=== PATIENT | male | born 1970 | race Caucasian/White ===

== ENCOUNTER → 2016-05-20 | Outpatient (CLI) | payer OTHER ==
[~2016-05-20] MED LIST: *BLDWK7; /MOXI40TA; ALLOPUR100 PO; ALLOPUR300 PO; CATAFLAM PO; CEFT500T; CLOTPOW; COLC0.6T; COLCHI0.6 PO; DARVOCET-N PO; IBUP600T; INDO50CA2; INDOCIN PO; VICO5TAB; ZOCOR20 PO
[2016-05-20 13:33] LABS: BASO # 0.1 K/mm3 (0.0-0.2); BASO % 0.9 % (0.0-1.0); EOS # 0.1 K/mm3 (0.0-0.50); EOS % 1.9 % (0.0-3.0); LYMPH # 1.2 K/mm3 (1.5-4.5); LYMPH % 18.3 % (24.0-44.0); MEAN CORPUSCULAR HEMOGLOBIN 28.6 pg (27.0-33.0); MEAN CORPUSCULAR HGB CONC 34.1 g/dl (32.0-36.5); MEAN CORPUSCULAR VOLUME 83.9 fl (80.0-96.0); MONO # 0.5 K/mm3 (0.0-0.8); MONO % 7.4 % (0.0-5.0); NEUTROPHILS # 4.4 K/mm3 (1.8-7.7); NEUTROPHILS % 68.3 % (36.0-66.0); RED CELL DISTRIBUTION WIDTH 12.6 % (11.5-14.5); WHITE BLOOD COUNT 6.5 K/mm3 (4.0-10.0)
[2016-05-20 14:14] LABS: ALBUMIN 4.2 GM/DL (3.2-5.2); ALBUMIN/GLOBULIN RATIO 1.56 (1.00-1.93); ALKALINE PHOSPHATASE 79 U/L (45-117); ALT/SGPT 50 U/L (12-78); ANION GAP 10 MEQ/L (8-16); AST/SGOT 20 U/L (15-37); BILIRUBIN,TOTAL 0.6 MG/DL (0.2-1.0); BLOOD UREA NITROGEN 14 MG/DL (7-18); CARBON DIOXIDE LEVEL 28 MEQ/L (21-32); CHLORIDE LEVEL 107 MEQ/L (98-107); CHOLESTEROL LEVEL 168 MG/DL (<200); CREATININE FOR GFR 1.13 MG/DL (0.70-1.30); FREE T4 0.92 NG/DL (0.76-1.46); GLOMERULAR FILTRATION RATE > 60.0 (>60); GLUCOSE, FASTING 87 MG/DL (70-105); POTASSIUM SERUM 4.9 MEQ/L (3.5-5.1); SODIUM LEVEL 145 MEQ/L (136-145); TOTAL PROTEIN 6.9 GM/DL (6.4-8.2); TRIGLYCERIDES LEVEL 109 MG/DL (<150)
== END ==
LOC: M WUC 11:41
PROVIDERS: ATTEND Family Medicine
DX: Z00.00 Encounter for general adult medical examination without abnormal findings (principal)

== ENCOUNTER 2016-05-22 10:41 | Emergency (ER) | payer OTHER ==
[2016-05-22 11:19] LABS: BASO # 0.1 K/mm3 (0.0-0.2); BASO % 1.6 % (0.0-1.0); EOS # 0.2 K/mm3 (0.0-0.50); EOS % 2.6 % (0.0-3.0); LARGE UNSTAINED CELL # 0.2 K/mm3 (0.0-0.4); LYMPH # 1.6 K/mm3 (1.5-4.5); MEAN CORPUSCULAR HEMOGLOBIN 29.2 pg (27.0-33.0); MEAN CORPUSCULAR HGB CONC 34.4 g/dl (32.0-36.5); MEAN CORPUSCULAR VOLUME 84.9 fl (80.0-96.0); MONO # 0.4 K/mm3 (0.0-0.8); MONO % 6.8 % (0.0-5.0); NEUTROPHILS % 62.9 % (36.0-66.0); PLATELET COUNT, AUTOMATED 188 k/mm3 (150-450); RED CELL DISTRIBUTION WIDTH 13.8 % (11.5-14.5); WHITE BLOOD COUNT 6.4 K/mm3 (4.0-10.0)
[2016-05-22] MEDS ORDERED: ASPIRIN 81 MG CHEW TABLET As Ordered ONE (11:26)
[2016-05-22 11:39] LABS: ANION GAP 5 MEQ/L (8-16); BLOOD UREA NITROGEN 16 MG/DL (7-18); CALCIUM LEVEL 8.6 MG/DL (8.5-10.1); CARBON DIOXIDE LEVEL 31 MEQ/L (21-32); CHLORIDE LEVEL 107 MEQ/L (98-107); CREATININE FOR GFR 0.97 MG/DL (0.70-1.30); GLOMERULAR FILTRATION RATE > 60.0 (>60); GLUCOSE, FASTING 99 MG/DL (70-105); POTASSIUM SERUM 4.5 MEQ/L (3.5-5.1); SODIUM LEVEL 143 MEQ/L (136-145)
--- NOTE | 2016-05-22 12:15 | REP ---
Chest two views HISTORY: Chest pain Comparison: 04/02/2003 The lungs are clear. The heart is normal in size. The pulmonary vasculature is normal in appearance. The bony structure is intact. IMPRESSION: No acute disease. Signed by Gabino Rivera MD 05/22/2016 12:06 P
--- NOTE | 2016-05-22 18:35 | EDDOCDS ---
Physician Documentation [facility] Name: Akin Zavala Age: 45 yrs Sex: Male : 1970 Arrival Date: 05/22/2016 Time: 10:41 Bed 15 Private MD: Ramakrishna Reich Disposition: 05/22/16 18:15 Discharged to Home/Self Care. Impression: Chest pain, unspecified. - Condition is Stable. - Discharge Instructions: Nonspecific Chest Pain. - Medication Reconciliation, Local Pharmacy Hours form. - Follow up: Ramakrishna Reich; When: 2 - 3 days; Reason: Recheck today's complaints. - Problem is new. - Symptoms are resolved. - Notes: You were seen in the ED for chest pain. Bloodwork along with EKG of the heart, chest Xray and cardiac monitoring showed no acute findings at this time. As you are feeling better you may return home to follow up at your primary doctor appointment in 3 days - discuss with your doctor the chest pain and any need for further testing such as stress testing. Call your underwriting director at [facility] to discuss this as well. Return to the ED for any return of chest pain, trouble breathing, lightheadedness, loss of consciousness or any other concerns. Historical: - Allergies: no known allergies; - Home Meds: 1. metoprolol succinate 25 mg Tb24 1 tab once daily 2. ramipril 2.5 mg Oral cap 1 cap once daily 3. atorvastatin 50 mg oral tab 1 tab once daily 4. Uloric 40 mg oral tab 1 tab once daily 5. Plavix 75 mg Oral tab 1 tab once daily 6. tizanidine 2 mg oral tab 2 tabs every 6 hours - PMHx: Gout; [place]; Hypercholesterolemia; Hypertension; - PSHx: Cardiac stents (2014); - Social history: Smoking status: Patient states former smoker of tobacco. No barriers to communication noted, The patient speaks fluent Upper Sorbian. - : Unable to assess if pt is on anticoagulants. Home medication list is obtained from the patient. - Exposure Risk Screening:: None identified. Vital Signs: 05/22 10:42 BP 153 / 82; Pulse 54; Resp 18; Temp 96.0; Pulse Ox 100% ; Weight 108.86 kg / 240 lbs; elp Height 5 ft. 10 in. (177.80 cm); Pain 3/10; 11:30 BP 137 / 82; Pulse 53; Pain 4/10; jjr 11:35 BP 129 / 68; Pulse 62; Pain 4/10; jjr 11:40 BP 110 / 61; Pulse 63; jjr 11:46 BP 100 / 56 (auto/); jjr 11:46 Pulse 58 MON; Pulse Ox 95% ; jjr 12:01 BP 100 / 64 (auto/); jjr 12:02 Pulse 52 MON; Pulse Ox 99% ; jjr 12:16 BP 96 / 62 (auto/); jjr 12:16 Pulse 52 MON; Pulse Ox 97% ; jjr 12:31 BP 99 / 62 (auto/); jjr 12:31 Pulse 52 MON; Resp 18; Pulse Ox 98% on R/A; jjr 12:46 BP 101 / 62 (auto/); jjr 12:46 Pulse 50 MON; Pulse Ox 99% ; jjr 13:48 BP 117 / 65 (auto/); jjr 13:48 Pulse 54 MON; jjr 14:46 BP 124 / 74 (auto/); jjr 14:46 Pulse 60 MON; jjr 15:14 BP 123 / 60 (auto/); jjr 15:15 Pulse 62 MON; jjr 16:14 BP 121 / 74 (auto/); jjr 16:14 Pulse 58 MON; Resp 18; jjr 17:14 BP 127 / 82 (auto/); jjr 17:14 Pulse 54 MON; Resp 18; jjr 18:33 BP 135 / 78; Pulse 52; Resp 18; Temp 97.2(O); Pulse Ox 98% on R/A; Pain 1/10; jjr 10:42 Body Mass Index 34.44 (108.86 kg, 177.80 cm) elp MDM: 10:52 Networks Computer Consultant/Pulse Ox/q 30 min VS ordered. br1 10:52 IV Saline Lock ordered. br1 10:52 Rhythm Strip to chart ordered. br1 10:52 Undress patient appropriately for examination ordered. br1 10:53 Basic Metabolic Profile Ordered. EDMS 10:53 CBC with Diff Ordered. EDMS 10:53 Cardiac Injury Profile Ordered. EDMS 10:53 Troponin Ordered. EDMS 10:53 ECG WITH READING ER PHYS+CARDIAG ordered. EDMS 10:53 Chest, 2 View (pa\E\lat) Ordered. EDMS 11:22 Aspirin 324 mg PO once ordered. br1 11:23 D-Dimer Quant Ordered. EDMS 11:25 Nitrostat 0.4 mg Sublingual every 5 minutes; hold if SBP<90mmHg.Document Pain Score br1 Response to Each Dose x3 ordered. 12:39 LOW FAT LOW CHOLESTEROL+DIET ordered. EDMS 13:10 Financial registration complete. lg 13:32 [facility] Payment Agreement was scanned into [employer] and attached to record. lg 14:48 Basic Metabolic Profile Reviewed. br1 14:48 CBC with Diff Reviewed. br1 14:48 Cardiac Injury Profile Reviewed. br1 14:48 Troponin Reviewed. br1 14:48 D-Dimer Quant Reviewed. br1 14:48 Chest, 2 View (pa\E\lat) Reviewed. br1 14:49 Repeat EKG (put time details section) ordered. br1 14:49 Redraw CIP &Troponin (put time in details section) ordered. br1 15:00 Repeat EKG (put time details section) complete. lbd 15:00 Redraw CIP &Troponin (put time in details section) complete. lbd 15:04 ECG WITH READING ER PHYS ordered. EDMS 15:04 CARDIAC MARKER PANEL Ordered. EDMS 17:03 CARDIAC MARKER PANEL Reviewed. br1 Administered Medications: 11:29 Drug: Aspirin 324 mg [aspirin 81 mg chewable tablet (4 tabs)] Route: PO; bcj 11:30 Drug: Nitrostat 0.4 mg [Nitrostat 0.4 mg sublingual tablet (1 tabs)] Route: Sublingual; jjr 11:35 Drug: Nitrostat 0.4 mg [Nitrostat 0.4 mg sublingual tablet (1 tabs)] Route: Sublingual; jjr Signatures: Dispatcher [employer] EDMS Lucía Lehman, Monitor Technician Unit lbd Edmundo Rod RN Monie Cortez, Reg Reg lg Florentino Hewitt RN RN dy Roggie, Brian, MD MD br1 Doreen Holguin RN RN jjRoberto Caruso RN bcj The chart was reviewed and I authenticate all verbal orders and agree with the evaluation and treatment provided.Corrections: (The following items were deleted from the chart) 11:31 10:49 Home Meds: Takes 5 meds, unknown, will contact [facility] for med list; aracelis matt Attachments: 13:32 [facility] Payment Agreement lg MTDD
--- NOTE | 2016-05-22 18:35 | EDDOCDS ---
Nurse's Notes [facility] Name: Akin Zavala Age: 45 yrs Sex: Male : 1970 Arrival Date: 05/22/2016 Time: 10:41 Bed 15 Private MD: Ramakrishna Reich Diagnosis: Chest pain, unspecified Presentation: 05/22 10:44 Presenting complaint: Patient states: Chest pain since heavy lifting yesterday at 11am, dwg pain is constant. Takes ASA 325mg daily last dose yesterday. Adult Sepsis Screening: The patient does not have new or worsening altered mentation. Patient's respiratory rate is less than 22. Systolic blood pressure is greater than 100. Patient has a qSOFA score of 0- Negative Sepsis Screen. Suicide/Homicide risk assessment- the patient denies having any suicidal and/or homicidal ideations and does not present with any other emotional, behavioral or mental health complaints. Status: Patient is not a household appliances service technician or dependent. Transition of care: patient was not received from another setting of care. 10:44 Method Of Arrival: Walkin/Carried/Asstd dwg 10:51 Acuity level changed due to complexity of care. dwg 10:51 Acuity: JEANETTE Level 2 dwg Triage Assessment: 10:49 General: Appears in no apparent distress. Pain: Pain currently is 3 out of 10 on a pain dwg scale. HIV screening NA for this visit Offered previously. Historical: - Allergies: no known allergies; - Home Meds: 1. metoprolol succinate 25 mg Tb24 1 tab once daily 2. ramipril 2.5 mg Oral cap 1 cap once daily 3. atorvastatin 50 mg oral tab 1 tab once daily 4. Uloric 40 mg oral tab 1 tab once daily 5. Plavix 75 mg Oral tab 1 tab once daily 6. tizanidine 2 mg oral tab 2 tabs every 6 hours - PMHx: Gout; [place]; Hypercholesterolemia; Hypertension; - PSHx: Cardiac stents (2014); - Social history: Smoking status: Patient states former smoker of tobacco. No barriers to communication noted, The patient speaks fluent Moldovan. - : Unable to assess if pt is on anticoagulants. Home medication list is obtained from the patient. - Exposure Risk Screening:: None identified. Screenin:45 Screening information is obtained from the patient. Fall risk: No risks identified. jjr Assistance ADL's: requires no assistance with activities of daily living. Abuse/DV Screen: The patient / caregiver reports he/she is: not in a situation that causes fear, pain or injury. Nutritional screening: No deficits noted. Advance Directives: There is no active DNR order. home support is adequate. Assessment: 11:44 General: Appears in no apparent distress, well nourished, well groomed, Behavior is jjr appropriate for age. Neurological: No deficits noted. Cardiovascular: Rhythm is sinus rhythm Chest pain is described as vague, quality is dull ache is located in substernal area radiates Does not radiate. episodes are continuous began yesterday. Respiratory: No deficits noted. Derm: No deficits noted. 12:35 General: Appears in no apparent distress, continues to report vague [place] jjr substernal chest ache 2/10. Neurological: No deficits noted. Cardiovascular: Rhythm is sinus bradycardia. Respiratory: No deficits noted. Derm: No deficits noted. 13:46 General: Appears in no apparent distress. Cardiovascular: Rhythm is sinus rhythm Chest jjr pain is described as Pain is 1 out of 10 on a pain scale. quality is dull ache is located in substernal area episodes are continuous. 15:15 General: Appears in no apparent distress, no change in vague c/o substernal chest pain. jjr Cardiovascular: Rhythm is sinus rhythm. Respiratory: No deficits noted. Derm: No deficits noted. 16:26 General: Appears in no apparent distress, Behavior is appropriate for age. jjr Cardiovascular: Rhythm is sinus bradycardia Chest pain is described as Pain is 1 out of 10 on a pain scale. is located in substernal area episodes are continuous. Respiratory: No deficits noted. Derm: No deficits noted. 17:27 General: Appears in no apparent distress, Behavior is appropriate for age. jjr Cardiovascular: Rhythm is sinus bradycardia Chest pain is described as vague, quality is ache is located in substernal area. 18:34 General: Appears in no apparent distress. Cardiovascular: Rhythm is sinus bradycardia jjr Chest pain is described as Pain is 1 out of 10 on a pain scale. is located in substernal area. Vital Signs: 10:42 BP 153 / 82; Pulse 54; Resp 18; Temp 96.0; Pulse Ox 100% ; Weight 108.86 kg; Height 5 elp ft. 10 in. (177.80 cm); Pain 3/10; 11:30 BP 137 / 82; Pulse 53; Pain 4/10; jjr 11:35 BP 129 / 68; Pulse 62; Pain 4/10; jjr 11:40 BP 110 / 61; Pulse 63; jjr 11:46 BP 100 / 56 (auto/); jjr 11:46 Pulse 58 MON; Pulse Ox 95% ; jjr 12:01 BP 100 / 64 (auto/); jjr 12:02 Pulse 52 MON; Pulse Ox 99% ; jjr 12:16 BP 96 / 62 (auto/); jjr 12:16 Pulse 52 MON; Pulse Ox 97% ; jjr 12:31 BP 99 / 62 (auto/); jjr 12:31 Pulse 52 MON; Resp 18; Pulse Ox 98% on R/A; jjr 12:46 BP 101 / 62 (auto/); jjr 12:46 Pulse 50 MON; Pulse Ox 99% ; jjr 13:48 BP 117 / 65 (auto/); jjr 13:48 Pulse 54 MON; jjr 14:46 BP 124 / 74 (auto/); jjr 14:46 Pulse 60 MON; jjr 15:14 BP 123 / 60 (auto/); jjr 15:15 Pulse 62 MON; jjr 16:14 BP 121 / 74 (auto/); jjr 16:14 Pulse 58 MON; Resp 18; jjr 17:14 BP 127 / 82 (auto/); jjr 17:14 Pulse 54 MON; Resp 18; jjr 18:33 BP 135 / 78; Pulse 52; Resp 18; Temp 97.2(O); Pulse Ox 98% on R/A; Pain 1/10; jjr 10:42 Body Mass Index 34.44 (108.86 kg, 177.80 cm) elp Vitals: 10:42 Log In Time: May 22, 2016 at 10:41. RN notified that patient meets Red Flag elp criteria. ED Course: 10:42 Patient visited by Mary Antonio PCA. elp 10:42 Ramakrishna Reich is Private Physician. elp 10:42 Patient visited by Mary Antonio PCA. elp 10:42 Patient moved to Waiting elp 10:46 Triage Initiated dwg 10:52 Doreen Holguin RN is Primary Nurse. dwg 10:52 Patient moved to 15 dwg 11:00 EKG done. (by ED staff). Reviewed by Kaleb Whelan MD. jrd 11:09 Patient visited by Saúl Kaur PCA. jrd 11:12 Inserted saline lock: 20 gauge in right antecubital area and blood collected. The dy patient tolerated the procedure well. Labs drawn. (by ED staff). Sent per order to lab. 11:15 Kaleb Whelan MD is Attending Physician. br1 11:21 Patient visited by Kaleb Whelan MD. br1 11:45 Patient visited by Doreen Holguin RN. jjr 11:45 The patient / caregiver is instructed regarding the plan of care and ED course. Cardiac jjr monitor on. Pulse ox on. NIBP on. 12:36 Patient visited by Doreen Holguin RN. jjr 12:54 Chest, 2 View (pa\E\lat) Returned. EDMS 13:32 [facility] Payment Agreement was scanned into [employer] and attached to record. lg 13:47 Patient visited by Doreen Holguin RN. jjr 14:54 Patient visited by Kaleb Whelan MD. br1 15:16 Patient visited by Doreen Holguin RN. jjr 16:25 CARDIAC MARKER PANEL Sent. jjr 16:26 Patient visited by Doreen Holguin RN. jjr 16:58 EKG done. (by ED staff). Reviewed by Kaleb Whelan MD. jjr 17:28 Patient visited by Doreen Holguin RN. jjr 18:10 Patient visited by Kaleb Whelan MD. br1 18:15 Ramakrishna Reich is Referral Physician. br1 18:33 Discontinued lock intact, bleeding controlled, pressure dressing applied, No jjr redness/swelling at site. No procedures done that require assistance. Administered Medications: 11:29 Drug: Aspirin 324 mg [aspirin 81 mg chewable tablet (4 tabs)] Route: PO; bcj 11:30 Drug: Nitrostat 0.4 mg [Nitrostat 0.4 mg sublingual tablet (1 tabs)] Route: Sublingual; jjr 11:35 Drug: Nitrostat 0.4 mg [Nitrostat 0.4 mg sublingual tablet (1 tabs)] Route: Sublingual; jjr Order Results: Lab Order: Basic Metabolic Profile; SPEC'M 05/22/16 11:10 Test: GLUCOSE, FASTING; Value: 99; Range: 70-105; Units: MG/DL; Status: F Test: BLOOD UREA NITROGEN; Value: 16; Range: 7-18; Units: MG/DL; Status: F Test: CREATININE FOR GFR; Value: 0.97; Range: 0.70-1.30; Units: MG/DL; Status: F Test: GLOMERULAR FILTRATION RATE; Value: > 60.0; Range: >60; Status: F Test: SODIUM LEVEL; Value: 143; Range: 136-145; Units: MEQ/L; Status: F Test: POTASSIUM SERUM; Value: 4.5; Range: 3.5-5.1; Units: MEQ/L; Status: F Test: CHLORIDE LEVEL; Value: 107; Range: 98-107; Units: MEQ/L; Status: F Test: CARBON DIOXIDE LEVEL; Value: 31; Range: 21-32; Units: MEQ/L; Status: F Test: ANION GAP; Value: 5; Range: 8-16; Abnormal: Below low normal; Units: MEQ/L; Status: F Test: CALCIUM LEVEL; Value: 8.6; Range: 8.5-10.1; Units: MG/DL; Status: F Test Note: ; Units are mL/min/1.73 m2 Chronic Kidney Disease Staging per NKF: Stage I & II GFR >=60 Normal to Mildly Decreased Stage III GFR 30-59 Moderately Decreased Stage IV GFR 15-29 Severely Decreased Stage V GFR <15 Very Little GFR Left ESRD GFR <15 on MAGAZINE FEEDER Lab Order: CBC with Diff; SPEC'M 05/22/16 11:10 Test: WHITE BLOOD COUNT; Value: 6.4; Range: 4.0-10.0; Units: K/mm3; Status: F Test: RED BLOOD COUNT; Value: 5.42; Range: 4.30-6.10; Units: M/mm3; Status: F Test: HEMOGLOBIN; Value: 15.8; Range: 14.0-18.0; Units: g/dl; Status: F Test: HEMATOCRIT; Value: 46.0; Range: 42.0-52.0; Units: %; Status: F Test: MEAN CORPUSCULAR VOLUME; Value: 84.9; Range: 80.0-96.0; Units: fl; Status: F Test: MEAN CORPUSCULAR HEMOGLOBIN; Value: 29.2; Range: 27.0-33.0; Units: pg; Status: F Test: MEAN CORPUSCULAR HGB CONC; Value: 34.4; Range: 32.0-36.5; Units: g/dl; Status: F Test: RED CELL DISTRIBUTION WIDTH; Value: 13.8; Range: 11.5-14.5; Units: %; Status: F Test: PLATELET COUNT, AUTOMATED; Value: 188; Range: 150-450; Units: k/mm3; Status: F Test: NEUTROPHILS %; Value: 62.9; Range: 36.0-66.0; Units: %; Status: F Test: LYMPH %; Value: 23.0; Range: 24.0-44.0; Abnormal: Below low normal; Units: %; Status: F Test: MONO %; Value: 6.8; Range: 0.0-5.0; Abnormal: Above high normal; Units: %; Status: F Test: EOS %; Value: 2.6; Range: 0.0-3.0; Units: %; Status: F Test: BASO %; Value: 1.6; Range: 0.0-1.0; Abnormal: Above high normal; Units: %; Status: F Test: LARGE UNSTAINED CELL %; Value: 3.0; Range: 0.0-4.0; Units: %; Status: F Test: NEUTROPHILS #; Value: 4.0; Range: 1.8-7.7; Units: K/mm3; Status: F Test: LYMPH #; Value: 1.6; Range: 1.5-4.5; Units: K/mm3; Status: F Test: MONO #; Value: 0.4; Range: 0.0-0.8; Units: K/mm3; Status: F Test: EOS #; Value: 0.2; Range: 0.0-0.50; Units: K/mm3; Status: F Test: BASO #; Value: 0.1; Range: 0.0-0.2; Units: K/mm3; Status: F Test: LARGE UNSTAINED CELL #; Value: 0.2; Range: 0.0-0.4; Units: K/mm3; Status: F Lab Order: Cardiac Injury Profile; [facility] 05/22/16 11:10 Test: CPK CREATINE PHOSPHOKINASE; Value: 150; Range: 39-308; Units: U/L; Status: F Test: CK-MB VALUE MASS; Value: 1.5; Range: 0.0-3.6; Units: NG/ML; Status: F Test: MB/CK RELATIVE INDEX; Value: 1.00; Range: < OR =4; Status: F Test Note: ; DIAGNOSIS CRITERIA MMB ng/ml Relative Index (RI) NON-AMI < or = 5 N/A FIGUEROA ZONE > 5 < or = 4 AMI > 5 > 4 Lab Order: Troponin; [facility] 05/22/16 11:10 Test: TROPONIN I; Value: < 0.02; Range: < 0.10; Units: NG/ML; Status: F Test Note: ; Troponin I Reference Interval for Zyncd LOCI: 99th Percentile= 0.00-0.045 ng/ml Risk Stratification: <= 0.10 ng/ml Decreased Risk for Adverse Clinical Events. 0.10-1.50 ng/ml Increased Risk for Adverse Clinical Events. Evaluation of additional criterion and/or repeat testing in 2-6 hours is suggested to rule out myocardial damage. >= 1.50 ng/ml Indicative of Myocardial Injury. Lab Order: D-Dimer Quant; [facility] 05/22/16 11:10 Test: D-DIMER QUANT; Value: < 270.0; Range: <500; Units: ng/ml; Status: F Lab Order: CARDIAC MARKER PANEL; [facility] 05/22/16 16:23 Test: CPK CREATINE PHOSPHOKINASE; Value: 119; Range: 39-308; Units: U/L; Status: F Test: CK-MB VALUE MASS; Value: 1.4; Range: 0.0-3.6; Units: NG/ML; Status: F Test: MB/CK RELATIVE INDEX; Value: 1.17; Range: < OR =4; Status: F Test: TROPONIN I; Value: < 0.02; Range: < 0.10; Units: NG/ML; Status: F Test Note: ; DIAGNOSIS CRITERIA MMB ng/ml Relative Index (RI) NON-AMI < or = 5 N/A FIGUEROA ZONE > 5 < or = 4 AMI > 5 > 4 Radiology Order: Chest, 2 View (pa\E\lat) Test: Chest, 2 View (pa\E\lat) REASON FOR EXAMINATION: Chest Pain; Chest two views; ; HISTORY: Chest pain; ; Comparison: 04/02/2003; ; The lungs are clear. The heart is normal in size. The pulmonary vasculature is; normal in appearance. The bony structure is intact.; ; IMPRESSION: No acute disease.; ; ; Signed by; Gabino Rivera MD 05/22/2016 12:06 P; Outcome: 18:15 Discharge ordered by Provider. br1 18:34 Discharge Assessment: patient administered narcotics - no. The following High Risk jjr Discharge criteria are identified: None. Discharged to home ambulatory, with significant other. Condition: stable. Discharge instructions given to patient, Instructed on discharge instructions, follow up and referral plans. Demonstrated understanding of instructions. No special radiology studies were completed. Property sent home with patient. 18:34 Patient left the ED. jjr Signatures: Dispatcher [employer] EDMS Edmundo Rod RN Roberto Hoyos RN RN Monie Latham, Florentino Casillas lg, RN Kaleb Retana MD MD br1 Doreen Holguin, RN Mary Camejo, PAINT ROLLER ASSEMBLER PAINT ROLLER ASSEMBLER elp Saúl Kaur, PAINT ROLLER ASSEMBLER PAINT ROLLER ASSEMBLER jrd Corrections: (The following items were deleted from the chart) 10:52 10:44 Acuity: JEANETTE Level 3 [facility] 11:31 10:49 Home Meds: Takes 5 meds, unknown, will contact [facility] for med list; aracelis matt MTDD
--- NOTE | 2016-05-23 08:06 | ECGEPIP ---
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
--- NOTE | 2016-05-23 08:10 | ECGEPIP ---
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
--- NOTE | 2016-05-24 19:36 | EDDOCDS ---
Physician Documentation [facility] Name: Akin Zavala Age: 45 yrs Sex: Male : 1970 Arrival Date: 05/22/2016 Time: 10:41 Bed 15 Private MD: Ramakrishna Reich Disposition: 05/22/16 18:15 Discharged to Home/Self Care. Impression: Chest pain, unspecified. - Condition is Stable. - Discharge Instructions: Nonspecific Chest Pain. - Medication Reconciliation, Local Pharmacy Hours form. - Follow up: Ramakrishna Reich; When: 2 - 3 days; Reason: Recheck today's complaints. - Problem is new. - Symptoms are resolved. - Notes: You were seen in the ED for chest pain. Bloodwork along with EKG of the heart, chest Xray and cardiac monitoring showed no acute findings at this time. As you are feeling better you may return home to follow up at your primary doctor appointment in 3 days - discuss with your doctor the chest pain and any need for further testing such as stress testing. Call your marketing database consultant at [facility] to discuss this as well. Return to the ED for any return of chest pain, trouble breathing, lightheadedness, loss of consciousness or any other concerns. Historical: - Allergies: no known allergies; - Home Meds: 1. metoprolol succinate 25 mg Tb24 1 tab once daily 2. ramipril 2.5 mg Oral cap 1 cap once daily 3. atorvastatin 50 mg oral tab 1 tab once daily 4. Uloric 40 mg oral tab 1 tab once daily 5. Plavix 75 mg Oral tab 1 tab once daily 6. tizanidine 2 mg oral tab 2 tabs every 6 hours - PMHx: Gout; [place]; Hypercholesterolemia; Hypertension; - PSHx: Cardiac stents (2014); - Social history: Smoking status: Patient states former smoker of tobacco. No barriers to communication noted, The patient speaks fluent German. - : Unable to assess if pt is on anticoagulants. Home medication list is obtained from the patient. - Exposure Risk Screening:: None identified. Vital Signs: 05/22 10:42 BP 153 / 82; Pulse 54; Resp 18; Temp 96.0; Pulse Ox 100% ; Weight 108.86 kg / 240 lbs; elp Height 5 ft. 10 in. (177.80 cm); Pain 3/10; 11:30 BP 137 / 82; Pulse 53; Pain 4/10; jjr 11:35 BP 129 / 68; Pulse 62; Pain 4/10; jjr 11:40 BP 110 / 61; Pulse 63; jjr 11:46 BP 100 / 56 (auto/); jjr 11:46 Pulse 58 MON; Pulse Ox 95% ; jjr 12:01 BP 100 / 64 (auto/); jjr 12:02 Pulse 52 MON; Pulse Ox 99% ; jjr 12:16 BP 96 / 62 (auto/); jjr 12:16 Pulse 52 MON; Pulse Ox 97% ; jjr 12:31 BP 99 / 62 (auto/); jjr 12:31 Pulse 52 MON; Resp 18; Pulse Ox 98% on R/A; jjr 12:46 BP 101 / 62 (auto/); jjr 12:46 Pulse 50 MON; Pulse Ox 99% ; jjr 13:48 BP 117 / 65 (auto/); jjr 13:48 Pulse 54 MON; jjr 14:46 BP 124 / 74 (auto/); jjr 14:46 Pulse 60 MON; jjr 15:14 BP 123 / 60 (auto/); jjr 15:15 Pulse 62 MON; jjr 16:14 BP 121 / 74 (auto/); jjr 16:14 Pulse 58 MON; Resp 18; jjr 17:14 BP 127 / 82 (auto/); jjr 17:14 Pulse 54 MON; Resp 18; jjr 18:33 BP 135 / 78; Pulse 52; Resp 18; Temp 97.2(O); Pulse Ox 98% on R/A; Pain 1/10; jjr 10:42 Body Mass Index 34.44 (108.86 kg, 177.80 cm) elp MDM: 10:52 Restorative Coordinator/Pulse Ox/q 30 min VS ordered. br1 10:52 IV Saline Lock ordered. br1 10:52 Rhythm Strip to chart ordered. br1 10:52 Undress patient appropriately for examination ordered. br1 10:53 Basic Metabolic Profile Ordered. EDMS 10:53 CBC with Diff Ordered. EDMS 10:53 Cardiac Injury Profile Ordered. EDMS 10:53 Troponin Ordered. EDMS 10:53 ECG WITH READING ER PHYS+CARDIAG ordered. EDMS 10:53 Chest, 2 View (pa\E\lat) Ordered. EDMS 11:22 Aspirin 324 mg PO once ordered. br1 11:23 D-Dimer Quant Ordered. EDMS 11:25 Nitrostat 0.4 mg Sublingual every 5 minutes; hold if SBP<90mmHg.Document Pain Score br1 Response to Each Dose x3 ordered. 12:39 LOW FAT LOW CHOLESTEROL+DIET ordered. EDMS 13:10 Financial registration complete. lg 13:32 [facility] Payment Agreement was scanned into [employer] and attached to record. lg 14:48 Basic Metabolic Profile Reviewed. br1 14:48 CBC with Diff Reviewed. br1 14:48 Cardiac Injury Profile Reviewed. br1 14:48 Troponin Reviewed. br1 14:48 D-Dimer Quant Reviewed. br1 14:48 Chest, 2 View (pa\E\lat) Reviewed. br1 14:49 Repeat EKG (put time details section) ordered. br1 14:49 Redraw CIP &Troponin (put time in details section) ordered. br1 15:00 Repeat EKG (put time details section) complete. lbd 15:00 Redraw CIP &Troponin (put time in details section) complete. lbd 15:04 ECG WITH READING ER PHYS ordered. EDMS 15:04 CARDIAC MARKER PANEL Ordered. EDMS 17:03 CARDIAC MARKER PANEL Reviewed. br1 05/23 10:41 T-Sheet-- Draft Copy was scanned into [employer] and attached to record. gb 10:41 ECG/EKG was scanned into [employer] and attached to record. gb Administered Medications: 05/22 11:29 Drug: Aspirin 324 mg [aspirin 81 mg chewable tablet (4 tabs)] Route: PO; bcj 11:30 Drug: Nitrostat 0.4 mg [Nitrostat 0.4 mg sublingual tablet (1 tabs)] Route: Sublingual; jjr 11:35 Drug: Nitrostat 0.4 mg [Nitrostat 0.4 mg sublingual tablet (1 tabs)] Route: Sublingual; jjr Signatures: Dispatcher [employer] EDMS Lucía Lehman, [employer]ling [employer] Mechanic Unit lbd Edmundo Rdo RN RN dwg Dariela Garsia, Reg Reg gb Monie Caba, Reg Reg lg Florentino Hewitt, BREN RN dy Kaleb Whelan MD MD br1 Doreen Holguin RN RN Roberto Dodson RN bcj The chart was reviewed and I authenticate all verbal orders and agree with the evaluation and treatment provided.Corrections: (The following items were deleted from the chart) 11:31 10:49 Home Meds: Takes 5 meds, unknown, will contact [facility] for med list; [facility] Attachments: 13:32 [facility] [place] 05/23 10:41 T-Sheet-- Draft Copy gb 10:41 ECG/EKG gb Chart Complete MTDD
--- NOTE | 2016-05-24 19:36 | EDDOCDS ---
Physician Documentation [facility] Name: Akin Zavala Age: 45 yrs Sex: Male : 1970 Arrival Date: 05/22/2016 Time: 10:41 Bed 15 Private MD: Ramakrishna Reich Disposition: 05/22/16 18:15 Discharged to Home/Self Care. Impression: Chest pain, unspecified. - Condition is Stable. - Discharge Instructions: Nonspecific Chest Pain. - Medication Reconciliation, Local Pharmacy Hours form. - Follow up: Ramakrishna Reich; When: 2 - 3 days; Reason: Recheck today's complaints. - Problem is new. - Symptoms are resolved. - Notes: You were seen in the ED for chest pain. Bloodwork along with EKG of the heart, chest Xray and cardiac monitoring showed no acute findings at this time. As you are feeling better you may return home to follow up at your primary doctor appointment in 3 days - discuss with your doctor the chest pain and any need for further testing such as stress testing. Call your access clerk at [facility] to discuss this as well. Return to the ED for any return of chest pain, trouble breathing, lightheadedness, loss of consciousness or any other concerns. Historical: - Allergies: no known allergies; - Home Meds: 1. metoprolol succinate 25 mg Tb24 1 tab once daily 2. ramipril 2.5 mg Oral cap 1 cap once daily 3. atorvastatin 50 mg oral tab 1 tab once daily 4. Uloric 40 mg oral tab 1 tab once daily 5. Plavix 75 mg Oral tab 1 tab once daily 6. tizanidine 2 mg oral tab 2 tabs every 6 hours - PMHx: Gout; [place]; Hypercholesterolemia; Hypertension; - PSHx: Cardiac stents (2014); - Social history: Smoking status: Patient states former smoker of tobacco. No barriers to communication noted, The patient speaks fluent Pashto. - : Unable to assess if pt is on anticoagulants. Home medication list is obtained from the patient. - Exposure Risk Screening:: None identified. Vital Signs: 05/22 10:42 BP 153 / 82; Pulse 54; Resp 18; Temp 96.0; Pulse Ox 100% ; Weight 108.86 kg / 240 lbs; elp Height 5 ft. 10 in. (177.80 cm); Pain 3/10; 11:30 BP 137 / 82; Pulse 53; Pain 4/10; jjr 11:35 BP 129 / 68; Pulse 62; Pain 4/10; jjr 11:40 BP 110 / 61; Pulse 63; jjr 11:46 BP 100 / 56 (auto/); jjr 11:46 Pulse 58 MON; Pulse Ox 95% ; jjr 12:01 BP 100 / 64 (auto/); jjr 12:02 Pulse 52 MON; Pulse Ox 99% ; jjr 12:16 BP 96 / 62 (auto/); jjr 12:16 Pulse 52 MON; Pulse Ox 97% ; jjr 12:31 BP 99 / 62 (auto/); jjr 12:31 Pulse 52 MON; Resp 18; Pulse Ox 98% on R/A; jjr 12:46 BP 101 / 62 (auto/); jjr 12:46 Pulse 50 MON; Pulse Ox 99% ; jjr 13:48 BP 117 / 65 (auto/); jjr 13:48 Pulse 54 MON; jjr 14:46 BP 124 / 74 (auto/); jjr 14:46 Pulse 60 MON; jjr 15:14 BP 123 / 60 (auto/); jjr 15:15 Pulse 62 MON; jjr 16:14 BP 121 / 74 (auto/); jjr 16:14 Pulse 58 MON; Resp 18; jjr 17:14 BP 127 / 82 (auto/); jjr 17:14 Pulse 54 MON; Resp 18; jjr 18:33 BP 135 / 78; Pulse 52; Resp 18; Temp 97.2(O); Pulse Ox 98% on R/A; Pain 1/10; jjr 10:42 Body Mass Index 34.44 (108.86 kg, 177.80 cm) elp MDM: 10:52 Hobbies And Crafts Sales Representative/Pulse Ox/q 30 min VS ordered. br1 10:52 IV Saline Lock ordered. br1 10:52 Rhythm Strip to chart ordered. br1 10:52 Undress patient appropriately for examination ordered. br1 10:53 Basic Metabolic Profile Ordered. EDMS 10:53 CBC with Diff Ordered. EDMS 10:53 Cardiac Injury Profile Ordered. EDMS 10:53 Troponin Ordered. EDMS 10:53 ECG WITH READING ER PHYS+CARDIAG ordered. EDMS 10:53 Chest, 2 View (pa\E\lat) Ordered. EDMS 11:22 Aspirin 324 mg PO once ordered. br1 11:23 D-Dimer Quant Ordered. EDMS 11:25 Nitrostat 0.4 mg Sublingual every 5 minutes; hold if SBP<90mmHg.Document Pain Score br1 Response to Each Dose x3 ordered. 12:39 LOW FAT LOW CHOLESTEROL+DIET ordered. EDMS 13:10 Financial registration complete. lg 13:32 [facility] Payment Agreement was scanned into [employer] and attached to record. lg 14:48 Basic Metabolic Profile Reviewed. br1 14:48 CBC with Diff Reviewed. br1 14:48 Cardiac Injury Profile Reviewed. br1 14:48 Troponin Reviewed. br1 14:48 D-Dimer Quant Reviewed. br1 14:48 Chest, 2 View (pa\E\lat) Reviewed. br1 14:49 Repeat EKG (put time details section) ordered. br1 14:49 Redraw CIP &Troponin (put time in details section) ordered. br1 15:00 Repeat EKG (put time details section) complete. lbd 15:00 Redraw CIP &Troponin (put time in details section) complete. lbd 15:04 ECG WITH READING ER PHYS ordered. EDMS 15:04 CARDIAC MARKER PANEL Ordered. EDMS 17:03 CARDIAC MARKER PANEL Reviewed. br1 05/23 10:41 T-Sheet-- Draft Copy was scanned into [employer] and attached to record. gb 10:41 ECG/EKG was scanned into [employer] and attached to record. gb Administered Medications: 05/22 11:29 Drug: Aspirin 324 mg [aspirin 81 mg chewable tablet (4 tabs)] Route: PO; bcj 11:30 Drug: Nitrostat 0.4 mg [Nitrostat 0.4 mg sublingual tablet (1 tabs)] Route: Sublingual; jjr 11:35 Drug: Nitrostat 0.4 mg [Nitrostat 0.4 mg sublingual tablet (1 tabs)] Route: Sublingual; jjr Signatures: Dispatcher [employer] EDMS Lucía Lehman, Dental Financial Coordinator Unit lbd Edmundo Rod RN RN dwg Dariela Garsia, Reg Reg gb Monie Caba, Reg Reg lg Florentino Hewitt, BREN RN dy Kaleb Whelan MD MD br1 Doreen Holguin RN RN Roberto Dodson RN bcj The chart was reviewed and I authenticate all verbal orders and agree with the evaluation and treatment provided.Corrections: (The following items were deleted from the chart) 11:31 10:49 Home Meds: Takes 5 meds, unknown, will contact [facility] for med list; [facility] Attachments: 13:32 [facility] Payment Agreement 05/23 10:41 T-Sheet-- Draft Copy gb 10:41 ECG/EKG gb Chart Complete MTDD
--- NOTE | 2016-05-24 19:36 | EDDOCDS ---
Nurse's Notes [facility] Name: Audie Narayan Age: 45 yrs Sex: Male : 1970 Arrival Date: 05/22/2016 Time: 10:41 Bed 15 Private MD: Ramakrishna Reich Diagnosis: Chest pain, unspecified Presentation: 05/22 10:44 Presenting complaint: Patient states: Chest pain since heavy lifting yesterday at 11am, dwg pain is constant. Takes ASA 325mg daily last dose yesterday. Adult Sepsis Screening: The patient does not have new or worsening altered mentation. Patient's respiratory rate is less than 22. Systolic blood pressure is greater than 100. Patient has a qSOFA score of 0- Negative Sepsis Screen. Suicide/Homicide risk assessment- the patient denies having any suicidal and/or homicidal ideations and does not present with any other emotional, behavioral or mental health complaints. Status: Patient is not a learning support services director or dependent. Transition of care: patient was not received from another setting of care. 10:44 Method Of Arrival: Walkin/Carried/Asstd dwg 10:51 Acuity level changed due to complexity of care. dwg 10:51 Acuity: JEANETTE Level 2 dwg Triage Assessment: 10:49 General: Appears in no apparent distress. Pain: Pain currently is 3 out of 10 on a pain dwg scale. HIV screening NA for this visit Offered previously. Historical: - Allergies: no known allergies; - Home Meds: 1. metoprolol succinate 25 mg Tb24 1 tab once daily 2. ramipril 2.5 mg Oral cap 1 cap once daily 3. atorvastatin 50 mg oral tab 1 tab once daily 4. Uloric 40 mg oral tab 1 tab once daily 5. Plavix 75 mg Oral tab 1 tab once daily 6. tizanidine 2 mg oral tab 2 tabs every 6 hours - PMHx: Gout; RI; Hypercholesterolemia; Hypertension; - PSHx: Cardiac stents (2014); - Social history: Smoking status: Patient states former smoker of tobacco. No barriers to communication noted, The patient speaks fluent Namibian. - : Unable to assess if pt is on anticoagulants. Home medication list is obtained from the patient. - Exposure Risk Screening:: None identified. Screenin:45 Screening information is obtained from the patient. Fall risk: No risks identified. jjr Assistance ADL's: requires no assistance with activities of daily living. Abuse/DV Screen: The patient / caregiver reports he/she is: not in a situation that causes fear, pain or injury. Nutritional screening: No deficits noted. Advance Directives: There is no active DNR order. home support is adequate. Assessment: 11:44 General: Appears in no apparent distress, well nourished, well groomed, Behavior is jjr appropriate for age. Neurological: No deficits noted. Cardiovascular: Rhythm is sinus rhythm Chest pain is described as vague, quality is dull ache is located in substernal area radiates Does not radiate. episodes are continuous began yesterday. Respiratory: No deficits noted. Derm: No deficits noted. 12:35 General: Appears in no apparent distress, continues to report vague [place] jjr substernal chest ache 2/10. Neurological: No deficits noted. Cardiovascular: Rhythm is sinus bradycardia. Respiratory: No deficits noted. Derm: No deficits noted. 13:46 General: Appears in no apparent distress. Cardiovascular: Rhythm is sinus rhythm Chest jjr pain is described as Pain is 1 out of 10 on a pain scale. quality is dull ache is located in substernal area episodes are continuous. 15:15 General: Appears in no apparent distress, no change in vague c/o substernal chest pain. jjr Cardiovascular: Rhythm is sinus rhythm. Respiratory: No deficits noted. Derm: No deficits noted. 16:26 General: Appears in no apparent distress, Behavior is appropriate for age. jjr Cardiovascular: Rhythm is sinus bradycardia Chest pain is described as Pain is 1 out of 10 on a pain scale. is located in substernal area episodes are continuous. Respiratory: No deficits noted. Derm: No deficits noted. 17:27 General: Appears in no apparent distress, Behavior is appropriate for age. jjr Cardiovascular: Rhythm is sinus bradycardia Chest pain is described as vague, quality is ache is located in substernal area. 18:34 General: Appears in no apparent distress. Cardiovascular: Rhythm is sinus bradycardia jjr Chest pain is described as Pain is 1 out of 10 on a pain scale. is located in substernal area. Vital Signs: 10:42 BP 153 / 82; Pulse 54; Resp 18; Temp 96.0; Pulse Ox 100% ; Weight 108.86 kg; Height 5 elp ft. 10 in. (177.80 cm); Pain 3/10; 11:30 BP 137 / 82; Pulse 53; Pain 4/10; jjr 11:35 BP 129 / 68; Pulse 62; Pain 4/10; jjr 11:40 BP 110 / 61; Pulse 63; jjr 11:46 BP 100 / 56 (auto/); jjr 11:46 Pulse 58 MON; Pulse Ox 95% ; jjr 12:01 BP 100 / 64 (auto/); jjr 12:02 Pulse 52 MON; Pulse Ox 99% ; jjr 12:16 BP 96 / 62 (auto/); jjr 12:16 Pulse 52 MON; Pulse Ox 97% ; jjr 12:31 BP 99 / 62 (auto/); jjr 12:31 Pulse 52 MON; Resp 18; Pulse Ox 98% on R/A; jjr 12:46 BP 101 / 62 (auto/); jjr 12:46 Pulse 50 MON; Pulse Ox 99% ; jjr 13:48 BP 117 / 65 (auto/); jjr 13:48 Pulse 54 MON; jjr 14:46 BP 124 / 74 (auto/); jjr 14:46 Pulse 60 MON; jjr 15:14 BP 123 / 60 (auto/); jjr 15:15 Pulse 62 MON; jjr 16:14 BP 121 / 74 (auto/); jjr 16:14 Pulse 58 MON; Resp 18; jjr 17:14 BP 127 / 82 (auto/); jjr 17:14 Pulse 54 MON; Resp 18; jjr 18:33 BP 135 / 78; Pulse 52; Resp 18; Temp 97.2(O); Pulse Ox 98% on R/A; Pain 1/10; jjr 10:42 Body Mass Index 34.44 (108.86 kg, 177.80 cm) elp Vitals: 10:42 Log In Time: May 22, 2016 at 10:41. RN notified that patient meets Red Flag elp criteria. ED Course: 10:42 Patient visited by Mary Antonio PCA. elp 10:42 Ramakrishna Reich is Private Physician. elp 10:42 Patient visited by Patchen, Mary, METAL FURNACE OPERATOR. elp 10:42 Patient moved to Waiting elp 10:46 Triage Initiated dwg 10:52 Doreen Holguin, RN is Primary Nurse. dwg 10:52 Patient moved to 15 dwg 11:00 EKG done. (by ED staff). Reviewed by Herman Whelan MD. jrd 11:09 Patient visited by Saúl Kaur PCA. jrd 11:12 Inserted saline lock: 20 gauge in right antecubital area and blood collected. The dy patient tolerated the procedure well. Labs drawn. (by ED staff). Sent per order to lab. 11:15 Herman Whelan MD is Attending Physician. br1 11:21 Patient visited by Herman Whelan MD. br1 11:45 Patient visited by Doreen Holguin RN. jjr 11:45 The patient / caregiver is instructed regarding the plan of care and ED course. Cardiac jjr monitor on. Pulse ox on. NIBP on. 12:36 Patient visited by oDreen Holguin RN. jjr 12:54 Chest, 2 View (pa\E\lat) Returned. EDMS 13:32 [facility] [place] Payment Agreement was scanned into [employer] and attached to record. lg 13:47 Patient visited by Doreen Holguin RN. jjr 14:54 Patient visited by Herman Whelan MD. br1 15:16 Patient visited by Doreen Holguin RN. jjr 16:25 CARDIAC MARKER PANEL Sent. jjr 16:26 Patient visited by Doreen Holguin RN. jjr 16:58 EKG done. (by ED staff). Reviewed by Herman Whelan MD. jjr 17:28 Patient visited by Doreen Holguin RN. jjr 18:10 Patient visited by Herman Whelan MD. br1 18:15 Ramakrishna Reich is Referral Physician. br1 18:33 Discontinued lock intact, bleeding controlled, pressure dressing applied, No jjr redness/swelling at site. No procedures done that require assistance. 05/23 08:41 EKG-ADULT Returned. EDMS 08:41 ECG WITH READING ER PHYS Returned. EDMS 10:41 T-Sheet-- Draft Copy was scanned into [employer] and attached to record. gb 10:41 ECG/EKG was scanned into [employer] and attached to record. gb Administered Medications: 05/22 11:29 Drug: Aspirin 324 mg [aspirin 81 mg chewable tablet (4 tabs)] Route: PO; bcj 11:30 Drug: Nitrostat 0.4 mg [Nitrostat 0.4 mg sublingual tablet (1 tabs)] Route: Sublingual; jjr 11:35 Drug: Nitrostat 0.4 mg [Nitrostat 0.4 mg sublingual tablet (1 tabs)] Route: Sublingual; jjr Order Results: Lab Order: Basic Metabolic Profile; SPEC'M 05/22/16 11:10 Test: GLUCOSE, FASTING; Value: 99; Range: 70-105; Units: MG/DL; Status: F Test: BLOOD UREA NITROGEN; Value: 16; Range: 7-18; Units: MG/DL; Status: F Test: CREATININE FOR GFR; Value: 0.97; Range: 0.70-1.30; Units: MG/DL; Status: F Test: GLOMERULAR FILTRATION RATE; Value: > 60.0; Range: >60; Status: F Test: SODIUM LEVEL; Value: 143; Range: 136-145; Units: MEQ/L; Status: F Test: POTASSIUM SERUM; Value: 4.5; Range: 3.5-5.1; Units: MEQ/L; Status: F Test: CHLORIDE LEVEL; Value: 107; Range: 98-107; Units: MEQ/L; Status: F Test: CARBON DIOXIDE LEVEL; Value: 31; Range: 21-32; Units: MEQ/L; Status: F Test: ANION GAP; Value: 5; Range: 8-16; Abnormal: Below low normal; Units: MEQ/L; Status: F Test: CALCIUM LEVEL; Value: 8.6; Range: 8.5-10.1; Units: MG/DL; Status: F Test Note: ; Units are mL/min/1.73 m2 Chronic Kidney Disease Staging per NKF: Stage I & II GFR >=60 Normal to Mildly Decreased Stage III GFR 30-59 Moderately Decreased Stage IV GFR 15-29 Severely Decreased Stage V GFR <15 Very Little GFR Left ESRD GFR <15 on CELLULOID TRIMMER Lab Order: CBC with Diff; SPEC'M 05/22/16 11:10 Test: WHITE BLOOD COUNT; Value: 6.4; Range: 4.0-10.0; Units: K/mm3; Status: F Test: RED BLOOD COUNT; Value: 5.42; Range: 4.30-6.10; Units: M/mm3; Status: F Test: HEMOGLOBIN; Value: 15.8; Range: 14.0-18.0; Units: g/dl; Status: F Test: HEMATOCRIT; Value: 46.0; Range: 42.0-52.0; Units: %; Status: F Test: MEAN CORPUSCULAR VOLUME; Value: 84.9; Range: 80.0-96.0; Units: fl; Status: F Test: MEAN CORPUSCULAR HEMOGLOBIN; Value: 29.2; Range: 27.0-33.0; Units: pg; Status: F Test: MEAN CORPUSCULAR HGB CONC; Value: 34.4; Range: 32.0-36.5; Units: g/dl; Status: F Test: RED CELL DISTRIBUTION WIDTH; Value: 13.8; Range: 11.5-14.5; Units: %; Status: F Test: PLATELET COUNT, AUTOMATED; Value: 188; Range: 150-450; Units: k/mm3; Status: F Test: NEUTROPHILS %; Value: 62.9; Range: 36.0-66.0; Units: %; Status: F Test: LYMPH %; Value: 23.0; Range: 24.0-44.0; Abnormal: Below low normal; Units: %; Status: F Test: MONO %; Value: 6.8; Range: 0.0-5.0; Abnormal: Above high normal; Units: %; Status: F Test: EOS %; Value: 2.6; Range: 0.0-3.0; Units: %; Status: F Test: BASO %; Value: 1.6; Range: 0.0-1.0; Abnormal: Above high normal; Units: %; Status: F Test: LARGE UNSTAINED CELL %; Value: 3.0; Range: 0.0-4.0; Units: %; Status: F Test: NEUTROPHILS #; Value: 4.0; Range: 1.8-7.7; Units: K/mm3; Status: F Test: LYMPH #; Value: 1.6; Range: 1.5-4.5; Units: K/mm3; Status: F Test: MONO #; Value: 0.4; Range: 0.0-0.8; Units: K/mm3; Status: F Test: EOS #; Value: 0.2; Range: 0.0-0.50; Units: K/mm3; Status: F Test: BASO #; Value: 0.1; Range: 0.0-0.2; Units: K/mm3; Status: F Test: LARGE UNSTAINED CELL #; Value: 0.2; Range: 0.0-0.4; Units: K/mm3; Status: F Lab Order: Cardiac Injury Profile; [facility] 05/22/16 11:10 Test: CPK CREATINE PHOSPHOKINASE; Value: 150; Range: 39-308; Units: U/L; Status: F Test: CK-MB VALUE MASS; Value: 1.5; Range: 0.0-3.6; Units: NG/ML; Status: F Test: MB/CK RELATIVE INDEX; Value: 1.00; Range: < OR =4; Status: F Test Note: ; DIAGNOSIS CRITERIA MMB ng/ml Relative Index (RI) NON-AMI < or = 5 N/A FIGUEROA ZONE > 5 < or = 4 AMI > 5 > 4 Lab Order: Troponin; [facility] 05/22/16 11:10 Test: TROPONIN I; Value: < 0.02; Range: < 0.10; Units: NG/ML; Status: F Test Note: ; Troponin I Reference Interval for Intelliden LOCI: 99th Percentile= 0.00-0.045 ng/ml Risk Stratification: <= 0.10 ng/ml Decreased Risk for Adverse Clinical Events. 0.10-1.50 ng/ml Increased Risk for Adverse Clinical Events. Evaluation of additional criterion and/or repeat testing in 2-6 hours is suggested to rule out myocardial damage. >= 1.50 ng/ml Indicative of Myocardial Injury. Lab Order: D-Dimer Quant; [facility] 05/22/16 11:10 Test: D-DIMER QUANT; Value: < 270.0; Range: <500; Units: ng/ml; Status: F Lab Order: CARDIAC MARKER PANEL; [facility] 05/22/16 16:23 Test: CPK CREATINE PHOSPHOKINASE; Value: 119; Range: 39-308; Units: U/L; Status: F Test: CK-MB VALUE MASS; Value: 1.4; Range: 0.0-3.6; Units: NG/ML; Status: F Test: MB/CK RELATIVE INDEX; Value: 1.17; Range: < OR =4; Status: F Test: TROPONIN I; Value: < 0.02; Range: < 0.10; Units: NG/ML; Status: F Test Note: ; DIAGNOSIS CRITERIA MMB ng/ml Relative Index (RI) NON-AMI < or = 5 N/A FIGUEROA ZONE > 5 < or = 4 AMI > 5 > 4 Radiology Order: EKG-ADULT Test: EKG-ADULT REASON FOR EXAMINATION: Chest Pain; Stationary ECG Study; [facility] - ED; ; Test Date: 2016-05-22; Pat Name: AUDIE NARAYAN Department:; Room: -; 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[employer]; : 1970 Requested By: HERMAN Mcallister; Order Number: [id number] Reading MD: Lamar Wallace; Measurements; Intervals [place]; Rate: 57 P: 10; GA: 175 QRS: -11; QRSD: 102 T: 4; QT: 440; QTc: 432; Interpretive Statements; SINUS BRADYCARDIA; INFERIOR MYOCARDIAL INFARCTION, PROBABLY OLD; NSTTW ABNORMALITY; NO PRIOR FOR COMPARISON; Electronically Signed On 05-23-2016 8:05:38 EST by Lamar Wallace; Radiology Order: Chest, 2 View (pa\E\lat) Test: Chest, 2 View (pa\E\lat) REASON FOR EXAMINATION: Chest Pain; Chest two views; ; HISTORY: Chest pain; ; Comparison: 04/02/2003; ; The lungs are clear. The heart is normal in size. The pulmonary vasculature is; normal in appearance. 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 br1 18:34 Discharge Assessment: patient administered narcotics - no. The following High Risk jjr Discharge criteria are identified: None. Discharged to home ambulatory, with significant other. Condition: stable. Discharge instructions given to patient, Instructed on discharge instructions, follow up and referral plans. Demonstrated understanding of instructions. No special radiology studies were completed. Property sent home with patient. 18:34 Patient left the ED. jjr Signatures: Dispatcher [employer] EDEdmundo Wilkins, RN Roberto Hoyos, RN RN Dariela Griffith, Reg Reg gb Monie Caba, Reg Reg lg Florentino Hewitt, RN Herman Retana MD MD br1 Doreen Holguin, RN Mary Camejo, METAL FURNACE OPERATOR METAL FURNACE OPERATOR elSaúl Kim, METAL FURNACE OPERATOR METAL FURNACE OPERATOR jrd Corrections: (The following items were deleted from the chart) 10:52 10:44 Acuity: JEANETTE Level 3 shaka gonsalves 11:31 10:49 Home Meds: Takes 5 meds, unknown, will contact [facility] for med list; aracelis matt Chart Complete MTDD
== END 2016-05-22 18:34 | disposition home or self-care (01) ==
LOC: M ED 10:41
DX: R07.9 Chest pain, unspecified (principal); R00.1 Bradycardia, unspecified; I10 Essential (primary) hypertension; I25.10 Atherosclerotic heart disease of native coronary artery without angina pectoris; E78.00 Pure hypercholesterolemia, unspecified; E78.5 Hyperlipidemia, unspecified; M10.9 Gout, unspecified; I25.2 Old myocardial infarction; Z79.899 Other long term (current) drug therapy; Z79.02 Long term (current) use of antithrombotics/antiplatelets; Z95.5 Presence of coronary angioplasty implant and graft; Z87.891 Personal history of nicotine dependence

== ENCOUNTER → 2016-07-15 | Outpatient (CLI) | payer OTHER ==
[~2016-07-15] MED LIST changes: +ALTA1CAP2 PO; +ASPI32ECTA PO; +ATOR1TAB19 PO; +ATOR40TA PO; +CLOP75TA2 PO; +FEBU40TA PO; +TOPR25TA PO
[2016-07-15 12:28] LABS: ALBUMIN 4.2 GM/DL (3.2-5.2); ALBUMIN/GLOBULIN RATIO 1.31 (1.00-1.93); ALKALINE PHOSPHATASE 77 U/L (45-117); ALT/SGPT 45 U/L (12-78); ANION GAP 10 MEQ/L (8-16); AST/SGOT 22 U/L (15-37); BILIRUBIN,TOTAL 0.6 MG/DL (0.2-1.0); BLOOD UREA NITROGEN 15 MG/DL (7-18); CARBON DIOXIDE LEVEL 26 MEQ/L (21-32); CHLORIDE LEVEL 106 MEQ/L (98-107); CHOLESTEROL LEVEL 182 MG/DL (<200); CREATININE FOR GFR 1.14 MG/DL (0.70-1.30); GLOMERULAR FILTRATION RATE > 60.0 (>60); GLUCOSE, FASTING 94 MG/DL (70-105); POTASSIUM SERUM 4.6 MEQ/L (3.5-5.1); SODIUM LEVEL 142 MEQ/L (136-145); TOTAL PROTEIN 7.4 GM/DL (6.4-8.2); TRIGLYCERIDES LEVEL 172 MG/DL (<150); URIC ACID 6.6 MG/DL (3.5-7.2)
== END ==
LOC: M LRY 10:20
PROVIDERS: ATTEND Family Medicine
DX: E78.5 Hyperlipidemia, unspecified (principal); I10 Essential (primary) hypertension; M10.9 Gout, unspecified

== ENCOUNTER 2016-07-22 06:04 | Day surgery (SDC) | payer OTHER ==
[~2016-07-22] VITALS: Ht 177.8 cm; Wt 154.0 kg
[2016-07-22] MEDS ORDERED: LR 1,000 ML IV SCH ×3 (06:30→10:45)
[2016-07-22] MEDS ORDERED: ASPIRIN 81 MG CHEW TABLET PO ONE (07:15)
[2016-07-22] MEDS ORDERED: METOPROLOL SUCC *XL* 25MG TAB (TopROL *XL*) As Ordered ONE (07:19)
[2016-07-22] MEDS ORDERED: LIDOCAINE 1% SDV INJ 30 ML VIAL As Ordered ONE (07:22)
[2016-07-22] MEDS ORDERED: BUPIVACAINE HCL 0.25% 30 ML VIAL As Ordered ONE (07:22)
[2016-07-22] MEDS ORDERED: METOPROLOL SUCC *XL* 25MG TAB (TopROL *XL*) PO ONE (08:00)
[2016-07-22] MEDS ORDERED: fentaNYL 250 MCG/5 ML INJECTION (J3010) As Ordered ONE (08:23)
[2016-07-22] MEDS ORDERED: MIDAZOLAM INJ 2 MG/2 ML VIAL (J2250) As Ordered ONE (08:23)
[2016-07-22] MEDS ORDERED: SUCCINYLCHOLINE 100 MG/5 ML SYRINGE (J0330) As Ordered ONE (08:24)
[2016-07-22] MEDS ORDERED: ROCURONIUM BROMIDE 50 MG/5 ML VIAL As Ordered ONE (08:24)
[2016-07-22] MEDS ORDERED: KETOROLAC 60 MG/2 ML VIAL (J1885) As Ordered ONE (08:24)
[2016-07-22] MEDS ORDERED: ePHEDrine SULFATE 25 MG/5 ML(5MG/ML) SYRINGE As Ordered ONE (08:24)
[2016-07-22] MEDS ORDERED: GLYCOPYRROLATE INJ 0.2 MG/ML 2 ML VIAL As Ordered ONE (08:24)
[2016-07-22] MEDS ORDERED: NEOSTIGMINE 1MG/ML 5 ML SYRINGE (J2710) As Ordered ONE (08:24)
[2016-07-22] MEDS ORDERED: ONDANSETRON 4MG/2ML VIAL (J2405) As Ordered ONE (08:24)
[2016-07-22] MEDS ORDERED: PROPOFOL 200 MG/20 ML VIAL As Ordered ONE (08:24)
[2016-07-22] MEDS ORDERED: LIDOCAINE 2% INJ 100 MG/5 ML SDV (FOR ANES.) As Ordered ONE (08:24)
[2016-07-22] MEDS ORDERED: METOCLOPRAMIDE INJ 10MG/2ML VIAL (J2765) As Ordered ONE (08:24)
[2016-07-22] MEDS ORDERED: SEVOFLURANE INHAL SOLN 250 ML BTL As Ordered ONE (08:43)
[2016-07-22] MEDS: LR 1,000 ML IV SCH ×2 (09:20→17:20)
[2016-07-22] MEDS ORDERED: NORCO, ANEXSIA 5/325MG TABLET (HYDROcodone/ACETAMINOPHEN) PO PRN (09:30)
[2016-07-22] MEDS ORDERED: ACETAMINOPHEN TAB 650MG DOSE (2X325MG) PO PRN (09:30)
[2016-07-22] MEDS ORDERED: KETOROLAC 30 MG/ML VIAL (J1885) IV PRN (09:30)
[2016-07-22] MEDS ORDERED: MORPHINE 4 MG/ML 1ML SYRINGE IV PRN (09:30)
[2016-07-22] MEDS ORDERED: ONDANSETRON 4MG/2ML VIAL (J2405) IV PRN ×2 (09:30→10:45)
[2016-07-22] MEDS ORDERED: PERCOCET 5MG/325MG TAB As Ordered ONE ×2 (09:53→11:58)
[2016-07-22] MEDS: PERCOCET 5MG/325MG TAB PO PRN ×2 (09:55→12:00)
[2016-07-22] MEDS ORDERED: METO25TAB PO (10:03)
[2016-07-22] MEDS ORDERED: fentaNYL 100 MCG/2 ML INJECTION (J3010) As Ordered ONE (10:15)
[2016-07-22] MEDS: fentaNYL 100 MCG/2 ML INJECTION (J3010) IV PRN ×4 (10:17→10:32)
[2016-07-22] MEDS ORDERED: HYDROmorphone HCL 1 MG/ML SYRINGE (J1170) IV PRN (10:45)
[2016-07-22] MEDS: RAMIPRIL 2.5 MG CAP PO SCH (16:34)
[2016-07-22] MEDS: ATORVASTATIN 20 MG TAB PO SCH (16:34)
[2016-07-22] MEDS: NORCO, ANEXSIA 5/325MG TABLET (HYDROcodone/ACETAMINOPHEN) PO PRN ×2 (18:43→22:54)
--- NOTE | 2016-07-22 18:45 | RO ---
DATE OF PROCEDURE: 07/22/2016 PREOPERATIVE DIAGNOSES: 1. Umbilical hernia. 2. Morbid obesity. POSTOPERATIVE DIAGNOSIS: 1. Umbilical hernia. 2. Morbid obesity. OPERATIVE PROCEDURE: Laparoscopic umbilical hernia repair using a 12 cm Parietex composite round mesh. SURGEON: Adam Pickett MD OPERATOR ASSISTANT I CEMENTING: Dr. Holly ANESTHESIA: General. ESTIMATED BLOOD LOSS: Less than 25 mL. COMPLICATIONS: None. REMARKS: The patient tolerated the procedure well. DESCRIPTION OF PROCEDURE: Mr. Zavala is a 45-year-old gentleman, morbidly obese with a body mass index (BMI) of 49. Also has an extensive cardiac history. He has cardiac stents, on Plavix and aspirin. He approached my clinic complaining of longstanding bulge on top portion of his umbilicus associated with discomfort with lifting. He had been advised repair and he presents today for laparoscopic repair of said hernia. The patient received Ancef preoperatively for prophylaxis. He was brought to the operating room, placed supine in the table. General endotracheal anesthesia started without any complications. Compression boots on his lower extremities placed for deep venous thrombosis (DVT) prophylaxis. His abdomen was prepped and draped in the usual sterile fashion. After a surgical time-out, we began our surgery, entry to the abdomen done over a left subcostal incision. This was placed laterally. A Veress needle was inserted in a controlled fashion. Intra-abdominal placement confirmed with saline drop technique. CO2 insufflation started at a pressure of 50 mmHg. Using the same incision, a 5 mm Visiport was placed under direct vision of laparoscope. The site was inspected for injury and none was found. He was placed in a slight right Trendelenburg position. A second working port placed over the left lower quadrant area. The area around the umbilicus was inspected internally. There was preperitoneal fat extending about 2 cm. This was reduced back into the abdomen. The preperitoneal fat was reduced back into the abdomen using a Harmonic scalpel. This was divided. We also opened up some of the peritoneum, the umbilical ligament as well as the falciform ligament to prepare the area for placement of mesh. I chose a 12 cm Parietex composite mesh to widely cover the area of the defect as well as associated diastasis of the muscle and encompasses, at least makes it about a 2 t 3 cm defect given his morbid obesity. This requires apparently, thick wide overlap in my opinion. This was rolled tightly, placed through the left lower quadrant port site after placement of four sutures in the cardinal corners. This was retrieved back into the abdomen, centered onto the hernia defect. The transabdominal sutures were tied off, two rows of secure strap tacks were placed around the umbilicus at 2 cm apart. We inspected for bleeding , none was found. The abdomen was then deflated. All ports removed. The working port site incisions closed with #4-0 Monocryl in subcuticular fashion. All the incisions were covered with Dermabond. The patient promptly awakened, extubated , and brought to recovery room, stable. edited: 07/24/2016 1039 tkf MTDD
[2016-07-22] MEDS: METOPROLOL TART 25 MG TABLET PO SCH (20:55)
[2016-07-22] MEDS ORDERED: FEBUXOSTAT 40 MG TABLET (ULORIC) PO SCH (21:00)
[2016-07-22 22:00] VITALS: BP 135/69
[2016-07-23 02:00] VITALS: BP 111/70
[2016-07-23] MEDS: NORCO, ANEXSIA 5/325MG TABLET (HYDROcodone/ACETAMINOPHEN) PO PRN ×4 (03:06→11:02)
[2016-07-23 06:00] VITALS: BP 117/79
[2016-07-23] MEDS: ATORVASTATIN 20 MG TAB PO SCH (08:57)
[2016-07-23] MEDS: RAMIPRIL 2.5 MG CAP PO SCH (09:01)
[2016-07-23 09:02] VITALS: BP 117/79
[2016-07-23] MEDS: METOPROLOL TART 25 MG TABLET PO SCH (09:02)
[2016-07-23] MEDS ORDERED: NORCO, ANEXSIA 5/325MG TABLET (HYDROcodone/ACETAMINOPHEN) PO PRN (09:30)
[2016-07-23] MEDS ORDERED: NORC5TAB PO (10:29)
[2016-07-25] MEDS ORDERED: NORCO, ANEXSIA 5/325MG TABLET (HYDROcodone/ACETAMINOPHEN) PO PRN (09:30)
== END 2016-07-23 11:15 | disposition home or self-care (01) ==
LOC: M SDC 06:04 → M MS5PR 12:50 → M SDC 07-23 11:15
PROVIDERS: ATTEND Surgery
DX: K42.0 Umbilical hernia with obstruction, without gangrene (principal); E66.01 Morbid (severe) obesity due to excess calories; I10 Essential (primary) hypertension; E78.5 Hyperlipidemia, unspecified; I25.2 Old myocardial infarction; L40.0 Psoriasis vulgaris; I20.9 Angina pectoris, unspecified; I25.10 Atherosclerotic heart disease of native coronary artery without angina pectoris; M10.00 Idiopathic gout, unspecified site; R07.9 Chest pain, unspecified; M12.9 Arthropathy, unspecified; G47.30 Sleep apnea, unspecified; Z79.899 Other long term (current) drug therapy; Z79.82 Long term (current) use of aspirin; Z87.442 Personal history of urinary calculi; Z95.5 Presence of coronary angioplasty implant and graft; Z79.01 Long term (current) use of anticoagulants; Z86.19 Personal history of other infectious and parasitic diseases
CPT/HCPCS: 49652; 88302; C1781; J0330; J0690; J1885; J2250; J2405; J2710; J2765; J3010

== ENCOUNTER → 2016-08-24 | Outpatient (CLI) | payer OTHER ==
[~2016-08-24] MED LIST changes: +METO25TAB PO; +NORC1TAB4 PO
[2016-08-24 17:17] LABS: MEAN CORPUSCULAR HEMOGLOBIN 29.7 pg (27.0-33.0); MEAN CORPUSCULAR HGB CONC 34.4 g/dl (32.0-36.5); MEAN CORPUSCULAR VOLUME 86.2 fl (80.0-96.0); RED CELL DISTRIBUTION WIDTH 13.3 % (11.5-14.5); WHITE BLOOD COUNT 5.8 K/mm3 (4.0-10.0)
== END ==
LOC: M WUC 12:08
PROVIDERS: ATTEND Surgery
DX: K42.9 Umbilical hernia without obstruction or gangrene (principal)

== ENCOUNTER → 2016-12-17 | Outpatient (CLI) | payer OTHER ==
[~2016-12-17] MED LIST changes: +ASPI325T24 PO; -ASPI32ECTA PO; -ATOR40TA PO; +ATOR40TA75 PO; +METO25TA4 PO; -METO25TAB PO
[2016-12-17 09:40] LABS: BASO # 0.1 K/mm3 (0.0-0.2); EOS # 0.2 K/mm3 (0.0-0.50); EOS % 2.9 % (0.0-3.0); LARGE UNSTAINED CELL # 0.2 K/mm3 (0.0-0.4); LYMPH # 1.5 K/mm3 (1.5-4.5); LYMPH % 23.6 % (24.0-44.0); MEAN CORPUSCULAR HEMOGLOBIN 29.6 pg (27.0-33.0); MEAN CORPUSCULAR VOLUME 84.6 fl (80.0-96.0); MONO # 0.5 K/mm3 (0.0-0.8); MONO % 7.6 % (0.0-5.0); NEUTROPHILS # 3.8 K/mm3 (1.8-7.7); NEUTROPHILS % 61.9 % (36.0-66.0); PLATELET COUNT, AUTOMATED 207 k/mm3 (150-450); RED CELL DISTRIBUTION WIDTH 13.1 % (11.5-14.5); WHITE BLOOD COUNT 6.2 K/mm3 (4.0-10.0)
[2016-12-17 09:46] LABS: INR 0.98
[2016-12-17 10:01] LABS: FOLATE 6.9 NG/ML; VITAMIN B12 LEVEL 368 PG/ML
[2016-12-17 10:34] LABS: ALBUMIN 3.8 GM/DL (3.2-5.2); ALBUMIN/GLOBULIN RATIO 1.12 (1.00-1.93); ALKALINE PHOSPHATASE 76 U/L (45-117); ALT/SGPT 59 U/L (12-78); ANION GAP 8 MEQ/L (8-16); AST/SGOT 24 U/L (15-37); BILIRUBIN,TOTAL 0.5 MG/DL (0.2-1.0); BLOOD UREA NITROGEN 12 MG/DL (7-18); CALCIUM LEVEL 9.3 MG/DL (8.5-10.1); CARBON DIOXIDE LEVEL 26 MEQ/L (21-32); CHLORIDE LEVEL 110 MEQ/L (98-107); CHOLESTEROL LEVEL 169 MG/DL (<200); CREATININE FOR GFR 1.11 MG/DL (0.70-1.30); GLOMERULAR FILTRATION RATE > 60.0 (>60); GLUCOSE, FASTING 101 MG/DL (70-105); POTASSIUM SERUM 4.3 MEQ/L (3.5-5.1); SODIUM LEVEL 144 MEQ/L (136-145); TOTAL PROTEIN 7.2 GM/DL (6.4-8.2); TRIGLYCERIDES LEVEL 244 MG/DL (<150); URIC ACID 6.1 MG/DL (3.5-7.2)
== END ==
LOC: M WUC 08:23
PROVIDERS: ATTEND Family Medicine
DX: Z01.818 Encounter for other preprocedural examination (principal); M10.9 Gout, unspecified; I10 Essential (primary) hypertension; E78.5 Hyperlipidemia, unspecified; R53.83 Other fatigue

== ENCOUNTER → 2017-08-28 | Outpatient (CLI) | payer OTHER ==
[2017-08-28 17:40] LABS: ALBUMIN/GLOBULIN RATIO 1.25 (1.00-1.93); ALKALINE PHOSPHATASE 84 U/L (45-117); ALT/SGPT 32 U/L (12-78); ANION GAP 6 MEQ/L (8-16); AST/SGOT 17 U/L (7-37); BILIRUBIN,TOTAL 0.7 MG/DL (0.2-1.0); BLOOD UREA NITROGEN 10 MG/DL (7-18); CALCIUM LEVEL 8.7 MG/DL (8.5-10.1); CARBON DIOXIDE LEVEL 27 MEQ/L (21-32); CHLORIDE LEVEL 111 MEQ/L (98-107); CHOLESTEROL LEVEL 158 MG/DL (<200); CHOLESTEROL RISK RATIO 3.511 (<5); CREATININE FOR GFR 1.08 MG/DL (0.70-1.30); GLOMERULAR FILTRATION RATE > 60.0 (>60); GLUCOSE, FASTING 79 MG/DL (70-100); HDL CHOLESTEROL 45 MG/DL (>40); LDL CHOLESTEROL 88.8 MG/DL (<100); NON-HDL-C 113 MG/DL; POTASSIUM SERUM 4.4 MEQ/L (3.5-5.1); SODIUM LEVEL 144 MEQ/L (136-145); TOTAL PROTEIN 7.2 GM/DL (6.4-8.2); TRIGLYCERIDES LEVEL 121 MG/DL (<150); URIC ACID 8.7 MG/DL (3.5-7.2)
[2017-08-28 18:03] LABS: FREE T4 0.85 NG/DL (0.76-1.46)
[2017-08-28 18:10] LABS: BASO # 0.1 10^3/uL (0.0-0.2); BASO % 1.1 % (0.0-1.0); EOS # 0.3 10^3/uL (0.0-0.50); HEMATOCRIT 46.1 % (42.0-52.0); HEMOGLOBIN 15.3 g/dl (13.5-17.5); IMMATURE GRANULOCYTE % 0.5 % (0-3.0); LYMPH # 1.5 10^3/uL (1.5-4.5); LYMPH % 22.4 % (24.0-44.0); MEAN CORPUSCULAR HEMOGLOBIN 28.4 pg (27.0-33.0); MEAN CORPUSCULAR HGB CONC 33.2 g/dl (32.0-36.5); MEAN CORPUSCULAR VOLUME 85.5 fl (80.0-96.0); MONO # 0.6 10^3/uL (0.0-0.8); MONO % 8.9 % (0.0-5.0); NEUTROPHILS # 4.1 10^3/uL (1.8-7.7); NEUTROPHILS % 63.1 % (36.0-66.0); PLATELET COUNT, AUTOMATED 219 10^3/uL (150-450); RED BLOOD COUNT 5.39 10^6/uL (4.30-6.10); RED CELL DISTRIBUTION WIDTH 13.2 % (11.5-14.5); WHITE BLOOD COUNT 6.5 10^3/uL (4.0-10.0)
[2017-08-28 18:14] LABS: APPEARANCE, URINE CLEAR (CLEAR); BACTERIA, URINE AUTO NEGATIVE (NEGATIVE); BILIRUBIN, URINE AUTO NEGATIVE (NEGATIVE); BLOOD, URINE BLOOD NEGATIVE (NEGATIVE); COLOR, URINE YELLOW (YELLOW); GLUCOSE, URINE (UA) AUTO NEGATIVE (NEGATIVE); KETONE, URINE AUTO NEGATIVE (NEGATIVE); LEUKOCYTE ESTERASE, URINE AUTO NEGATIVE (NEGATIVE); MUCUS, URINE SMALL (NEGATIVE); NITRITE, URINE AUTO NEGATIVE (NEGATIVE); PROTEIN, URINE AUTO NEGATIVE (NEGATIVE); RBC, URINE AUTO 2 /HPF (0-3); SPECIFIC GRAVITY URINE AUTO 1.017 (1.002-1.035); SQUAMOUS EPITHELIAL CELL UR AU 0 /HPF (0-6); UROBILINOGEN, URINE AUTO 0.2 mg/dL (0.0-2.0); WBC, URINE AUTO 1 /HPF (0-3)
== END ==
LOC: M WUC 12:26
DX: Z01.818 Encounter for other preprocedural examination (principal); M10.9 Gout, unspecified; I10 Essential (primary) hypertension; E78.5 Hyperlipidemia, unspecified
CPT/HCPCS: 84443

== ENCOUNTER 2017-10-20 09:29 | Emergency (ER) | payer OTHER | END 2017-10-20 12:07 | disposition home or self-care (01) | LOC: M ED 09:29 | DX: I83.891 Varicose veins of right lower extremity with other complications (principal); I10 Essential (primary) hypertension; Z79.899 Other long term (current) drug therapy; Z79.82 Long term (current) use of aspirin | CPT/HCPCS: 99284 ==

== ENCOUNTER → 2018-03-09 | Outpatient (CLI) | payer OTHER ==
[2018-03-09 19:50] LABS: URIC ACID 11.4 MG/DL (3.5-7.2)
== END ==
LOC: M WUC 16:21
DX: M10.9 Gout, unspecified (principal)
CPT/HCPCS: 84550

== ENCOUNTER → 2018-09-16 | Outpatient (CLI) | payer OTHER ==
[~2018-09-16] MED LIST changes: -/MOXI40TA; +ASPI-255 PO; -ASPI325T24 PO; +AVEL1TAB2; -NORC1TAB4 PO; +NORC1TAB7 PO
[2018-09-16 12:50] LABS: BASO # 0.1 10^3/uL (0.0-0.2); BASO % 1.1 % (0.0-1.0); EOS # 0.2 10^3/uL (0.0-0.50); EOS % 3.2 % (0.0-3.0); HEMATOCRIT 46.3 % (42.0-52.0); HEMOGLOBIN 15.5 g/dl (13.5-17.5); LYMPH # 1.3 10^3/uL (1.5-4.5); LYMPH % 19.7 % (24.0-44.0); MEAN CORPUSCULAR HEMOGLOBIN 28.4 pg (27.0-33.0); MEAN CORPUSCULAR HGB CONC 33.5 g/dl (32.0-36.5); MONO # 0.6 10^3/uL (0.0-0.8); MONO % 9.2 % (0.0-5.0); NEUTROPHILS # 4.4 10^3/uL (1.8-7.7); NEUTROPHILS % 66.5 % (36.0-66.0); PLATELET COUNT, AUTOMATED 239 10^3/uL (150-450); RED BLOOD COUNT 5.45 10^6/uL (4.30-6.10); WHITE BLOOD COUNT 6.6 10^3/uL (4.0-10.0)
[2018-09-16 13:19] LABS: ALBUMIN 3.7 GM/DL (3.2-5.2); ALT/SGPT 54 U/L (12-78); BILIRUBIN,TOTAL 0.6 MG/DL (0.2-1.0); BLOOD UREA NITROGEN 15 MG/DL (7-18); CALCIUM LEVEL 8.7 MG/DL (8.5-10.1); CARBON DIOXIDE LEVEL 22 MEQ/L (21-32); CHLORIDE LEVEL 111 MEQ/L (98-107); CHOLESTEROL LEVEL 152 MG/DL (<200); CHOLESTEROL RISK RATIO 4.108 (<5); FOLATE 8.5 NG/ML (>5.4); GLOMERULAR FILTRATION RATE > 60.0 (>60); GLUCOSE, FASTING 114 MG/DL (70-100); HDL CHOLESTEROL 37 MG/DL (>40); LDL CHOLESTEROL 93 MG/DL (<100); NON-HDL-C 115 MG/DL; POTASSIUM SERUM 4.1 MEQ/L (3.5-5.1); SODIUM LEVEL 142 MEQ/L (136-145); TOTAL PROTEIN 7.2 GM/DL (6.4-8.2); TRIGLYCERIDES LEVEL 111 MG/DL (<150); URIC ACID 8.8 MG/DL (3.5-7.2); VITAMIN B12 LEVEL 608 PG/ML (247-911)
[2018-09-16 13:32] LABS: APPEARANCE, URINE CLEAR (CLEAR); BACTERIA, URINE AUTO NEGATIVE (NEGATIVE); BILIRUBIN, URINE AUTO NEGATIVE (NEGATIVE); BLOOD, URINE BLOOD NEGATIVE (NEGATIVE); COLOR, URINE YELLOW (YELLOW); GLUCOSE, URINE (UA) AUTO NEGATIVE (NEGATIVE); KETONE, URINE AUTO NEGATIVE (NEGATIVE); LEUKOCYTE ESTERASE, URINE AUTO NEGATIVE (NEGATIVE); MUCUS, URINE SMALL (NEGATIVE); NITRITE, URINE AUTO NEGATIVE (NEGATIVE); PROTEIN, URINE AUTO NEGATIVE (NEGATIVE); RBC, URINE AUTO 1 /HPF (0-3); SPECIFIC GRAVITY URINE AUTO 1.018 (1.002-1.035); SQUAMOUS EPITHELIAL CELL UR AU 0 /HPF (0-6); UROBILINOGEN, URINE AUTO 0.2 mg/dL (0.0-2.0); WBC, URINE AUTO 2 /HPF (0-3)
[2018-09-16 13:53] LABS: HEMOGLOBIN A1c 5.8 %
== END ==
LOC: M WUC 09:45
PROVIDERS: ATTEND Family Medicine
DX: Z01.818 Encounter for other preprocedural examination (principal); M10.9 Gout, unspecified; I10 Essential (primary) hypertension; E78.5 Hyperlipidemia, unspecified; E66.01 Morbid (severe) obesity due to excess calories

== ENCOUNTER 2019-01-04 20:55 | Emergency (ER) | payer BC, OTHER ==
[~2019-01-04] VITALS: Ht 177.8 cm; Wt 172.7 kg
[~2019-01-04 20:55] MED LIST changes: -FEBU40TA PO; +FEBU40TA4 PO
[2019-01-04 21:57] VITALS: BP 189/99
[2019-01-04] MEDS ORDERED: ASPIRIN 81 MG CHEW TABLET PO ONE (22:00)
[2019-01-04] MEDS ORDERED: NITROGLYCERIN 0.4 MG SUBL TABLET SL PRN (22:00)
[2019-01-04 22:01] LABS: BASO # 0.1 10^3/uL (0.0-0.2); BASO % 0.9 % (0.0-1.0); EOS # 0.3 10^3/uL (0.0-0.5); EOS % 3.6 % (0.0-3.0); HEMATOCRIT 44.3 % (42.0-52.0); HEMOGLOBIN 14.8 g/dl (13.5-17.5); LYMPH # 1.6 10^3/uL (1.5-5.0); LYMPH % 22.3 % (24.0-44.0); MEAN CORPUSCULAR HEMOGLOBIN 28.6 pg (27.0-33.0); MEAN CORPUSCULAR HGB CONC 33.4 g/dl (32.0-36.5); MEAN CORPUSCULAR VOLUME 85.7 fl (80.0-96.0); MONO # 0.6 10^3/uL (0.0-0.8); MONO % 8.9 % (0.0-5.0); NEUTROPHILS # 4.5 10^3/uL (1.5-8.5); NEUTROPHILS % 63.9 % (36.0-66.0); PLATELET COUNT, AUTOMATED 198 10^3/uL (150-450); RED BLOOD COUNT 5.17 10^6/uL (4.30-6.10)
[2019-01-04 22:12] LABS: INR 1.05; PROTHROMBIN TIME 13.4 SECONDS (11.8-14.0)
[2019-01-04 22:14] LABS: D-DIMER QUANT 496.62 ng/ml (<500)
[2019-01-04 22:33] LABS: ALBUMIN 3.7 GM/DL (3.2-5.2); ALT/SGPT 41 U/L (12-78); BILIRUBIN,DIRECT 0.1 MG/DL (0.0-0.2); BILIRUBIN,TOTAL 0.6 MG/DL (0.2-1.0); BLOOD UREA NITROGEN 13 MG/DL (7-18); CALCIUM LEVEL 9.3 MG/DL (8.5-10.1); CARBON DIOXIDE LEVEL 29 MEQ/L (21-32); CHLORIDE LEVEL 108 MEQ/L (98-107); CK-MB VALUE MASS < 1.0 NG/ML (<3.6); CPK CREATINE PHOSPHOKINASE 219 U/L (39-308); CREATININE FOR GFR 1.09 MG/DL (0.70-1.30); GLOMERULAR FILTRATION RATE > 60.0 (>60); GLUCOSE, FASTING 85 MG/DL (70-100); LIPASE 100 U/L (73-393); MB/CK RELATIVE INDEX 0.46 (< OR =4); NT-PRO BNP 368 PG/ML (<125); POTASSIUM SERUM 3.7 MEQ/L (3.5-5.1); SODIUM LEVEL 143 MEQ/L (136-145); TROPONIN I < 0.02 NG/ML (< 0.10)
[2019-01-04 23:55] VITALS: BP 110/56
--- NOTE | 2019-01-05 07:45 | REP ---
Clinical: Acute chest pain . Comparison: 05/22/2016 . Findings: The mediastinum and cardiac silhouette are stable and within normal limits for portable technique. The lung gonzalez are clear without acute consolidation, effusion, or pneumothorax. Skeletal structures are intact. Impression: No acute cardiopulmonary process appreciated. Electronically Signed by Maldonado Figueroa MD 01/05/2019 07:37 A
--- NOTE | 2019-01-06 06:52 | ECGEPIP ---
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
== END 2019-01-04 23:56 | disposition home or self-care (01) ==
LOC: M ED 20:55
DX: R07.89 Other chest pain (principal); E11.9 Type 2 diabetes mellitus without complications; I10 Essential (primary) hypertension; E78.5 Hyperlipidemia, unspecified; Z95.1 Presence of aortocoronary bypass graft; Z95.5 Presence of coronary angioplasty implant and graft; Z79.899 Other long term (current) drug therapy; Z79.82 Long term (current) use of aspirin

== ENCOUNTER → 2019-08-12 | Outpatient (CLI) | payer BC ==
[2019-08-12 13:01] LABS: BASO # 0.1 10^3/uL (0.0-0.2); BASO % 1.2 % (0.0-1.0); EOS # 0.2 10^3/uL (0.0-0.5); EOS % 3.3 % (0.0-3.0); HEMATOCRIT 49.9 % (42.0-52.0); HEMOGLOBIN 16.1 g/dl (13.5-17.5); LYMPH # 1.5 10^3/uL (1.5-5.0); LYMPH % 22.2 % (24.0-44.0); MEAN CORPUSCULAR HEMOGLOBIN 27.6 pg (27.0-33.0); MEAN CORPUSCULAR HGB CONC 32.3 g/dl (32.0-36.5); MEAN CORPUSCULAR VOLUME 85.4 fl (80.0-96.0); MONO # 0.6 10^3/uL (0.0-0.8); MONO % 8.9 % (0.0-5.0); NEUTROPHILS # 4.2 10^3/uL (1.5-8.5); NEUTROPHILS % 63.9 % (36.0-66.0); PLATELET COUNT, AUTOMATED 202 10^3/uL (150-450); RED BLOOD COUNT 5.84 10^6/uL (4.30-6.10); WHITE BLOOD COUNT 6.6 10^3/uL (4.0-10.0)
[2019-08-12 13:03] LABS: APPEARANCE, URINE CLEAR (CLEAR); BACTERIA, URINE AUTO NEGATIVE (NEGATIVE); BILIRUBIN, URINE AUTO NEGATIVE (NEGATIVE); BLOOD, URINE BLOOD NEGATIVE (NEGATIVE); COLOR, URINE YELLOW (YELLOW); GLUCOSE, URINE (UA) AUTO NEGATIVE (NEGATIVE); KETONE, URINE AUTO NEGATIVE (NEGATIVE); LEUKOCYTE ESTERASE, URINE AUTO NEGATIVE (NEGATIVE); MUCUS, URINE SMALL (NEGATIVE); NITRITE, URINE AUTO NEGATIVE (NEGATIVE); PROTEIN, URINE AUTO NEGATIVE (NEGATIVE); RBC, URINE AUTO 3 /HPF (0-3); SPECIFIC GRAVITY URINE AUTO 1.015 (1.002-1.035); SQUAMOUS EPITHELIAL CELL UR AU 0 /HPF (0-6); UROBILINOGEN, URINE AUTO 0.2 mg/dL (0.0-2.0); WBC, URINE AUTO 3 /HPF (0-3)
[2019-08-12 13:07] LABS: ALBUMIN 3.7 GM/DL (3.2-5.2); ALT/SGPT 43 U/L (12-78); BILIRUBIN,TOTAL 0.6 MG/DL (0.2-1.0); BLOOD UREA NITROGEN 11 MG/DL (7-18); CALCIUM LEVEL 8.8 MG/DL (8.5-10.1); CARBON DIOXIDE LEVEL 28 MEQ/L (21-32); CHLORIDE LEVEL 107 MEQ/L (98-107); CHOLESTEROL LEVEL 156 MG/DL (<200); CHOLESTEROL RISK RATIO 3.545 (<5); CREATININE FOR GFR 1.05 MG/DL (0.70-1.30); GLOMERULAR FILTRATION RATE > 60.0 (>60); GLUCOSE, FASTING 104 MG/DL (70-100); HDL CHOLESTEROL 44 MG/DL (>40); LDL CHOLESTEROL 91 MG/DL (<100); NON-HDL-C 112 MG/DL; POTASSIUM SERUM 4.5 MEQ/L (3.5-5.1); SODIUM LEVEL 141 MEQ/L (136-145); TOTAL PROTEIN 6.9 GM/DL (6.4-8.2); TRIGLYCERIDES LEVEL 103 MG/DL (<150); URIC ACID 7.5 MG/DL (3.5-7.2)
[2019-08-12 13:16] LABS: HEMOGLOBIN A1c 6.1 %
[2019-08-14 07:52] LABS: VITAMIN B12 LEVEL 653 PG/ML (247-911)
[2019-08-14 07:56] LABS: FOLATE 4.7 NG/ML (>5.4)
== END ==
LOC: M WUC 10:15
PROVIDERS: ATTEND Family Medicine
DX: Z01.818 Encounter for other preprocedural examination (principal); M10.9 Gout, unspecified; E78.2 Mixed hyperlipidemia; E66.01 Morbid (severe) obesity due to excess calories; I10 Essential (primary) hypertension

== ENCOUNTER → 2019-11-03 | Outpatient (CLI) | payer OTHER ==
--- NOTE | 2019-11-03 10:36 | REP ---
Clinical: Trauma. Technique: AP, lateral, bilateral oblique views of the left knee. Findings: Early advanced tricompartmental osteoarthritic degenerative changes are appreciated. Diffuse soft tissue swelling and possible effusion noted. While no definite acute fracture or dislocation is appreciated, subtle injury involving the lateral aspect of the tibial plateau cannot be excluded and should be correlated clinically. Impression: Limited by arthritic degenerative changes. Swelling and effusion. Cannot definitively exclude acute fracture of the proximal tibia. Electronically Signed by Maldonado Figueroa MD 11/03/2019 10:29 A
== END ==
LOC: M LRY 10:07
PROVIDERS: ATTEND Physician Assistant
DX: S89.92XA Unspecified injury of left lower leg, initial encounter (principal); X58.XXXA Exposure to other specified factors, initial encounter; Y92.89 Other specified places as the place of occurrence of the external cause; Y93.9 Activity, unspecified; Y99.9 Unspecified external cause status

== ENCOUNTER → 2020-07-19 | Outpatient (CLI) | payer BC ==
[2020-07-19 10:13] LABS: APPEARANCE, URINE CLEAR (CLEAR); BACTERIA, URINE AUTO NEGATIVE (NEGATIVE); BASO # 0.1 10^3/uL (0.0-0.2); BASO % 0.7 % (0.0-1.0); BILIRUBIN, URINE AUTO NEGATIVE (NEGATIVE); BLOOD, URINE BLOOD NEGATIVE (NEGATIVE); COLOR, URINE YELLOW (YELLOW); EOS # 0.3 10^3/uL (0.0-0.5); EOS % 4.1 % (0.0-3.0); GLUCOSE, URINE (UA) AUTO NEGATIVE (NEGATIVE); HEMATOCRIT 47.9 % (42.0-52.0); HEMOGLOBIN 15.3 g/dl (13.5-17.5); KETONE, URINE AUTO NEGATIVE (NEGATIVE); LEUKOCYTE ESTERASE, URINE AUTO NEGATIVE (NEGATIVE); LYMPH # 1.5 10^3/uL (1.5-5.0); LYMPH % 21.4 % (24.0-44.0); MEAN CORPUSCULAR HEMOGLOBIN 27.6 pg (27.0-33.0); MEAN CORPUSCULAR HGB CONC 31.9 g/dl (32.0-36.5); MEAN CORPUSCULAR VOLUME 86.3 fl (80.0-96.0); MONO # 0.8 10^3/uL (0.0-0.8); MONO % 11.7 % (2.0-8.0); MUCUS, URINE SMALL (NEGATIVE); NEUTROPHILS # 4.2 10^3/uL (1.5-8.5); NEUTROPHILS % 61.7 % (36.0-66.0); NITRITE, URINE AUTO NEGATIVE (NEGATIVE); PLATELET COUNT, AUTOMATED 218 10^3/uL (150-450); PROTEIN, URINE AUTO NEGATIVE (NEGATIVE); RBC, URINE AUTO 1 /HPF (0-3); RED BLOOD COUNT 5.55 10^6/uL (4.30-6.10); SPECIFIC GRAVITY URINE AUTO 1.023 (1.002-1.035); SQUAMOUS EPITHELIAL CELL UR AU 0 /HPF (0-6); WBC, URINE AUTO 1 /HPF (0-3); WHITE BLOOD COUNT 6.8 10^3/uL (4.0-10.0)
[2020-07-19 10:35] LABS: HEMOGLOBIN A1c 5.8 %
[2020-07-19 10:47] LABS: ALBUMIN 4.1 GM/DL (3.2-5.2); ALT/SGPT 57 U/L (12-78); BILIRUBIN,TOTAL 0.4 MG/DL (0.2-1.0); BLOOD UREA NITROGEN 16 MG/DL (7-18); CALCIUM LEVEL 9.1 MG/DL (8.5-10.1); CARBON DIOXIDE LEVEL 28 MEQ/L (21-32); CHLORIDE LEVEL 111 MEQ/L (98-107); CHOLESTEROL LEVEL 134 MG/DL (<200); CHOLESTEROL RISK RATIO 3.526 (<5); CREATININE FOR GFR 0.88 MG/DL (0.70-1.30); GLOMERULAR FILTRATION RATE > 60.0 (>60); GLUCOSE, FASTING 120 MG/DL (70-100); HDL CHOLESTEROL 38 MG/DL (>40); LDL CHOLESTEROL 69 MG/DL (<100); NON-HDL-C 96 MG/DL; POTASSIUM SERUM 4.5 MEQ/L (3.5-5.1); SODIUM LEVEL 143 MEQ/L (136-145); TOTAL PROTEIN 6.9 GM/DL (6.4-8.2); TRIGLYCERIDES LEVEL 137 MG/DL (<150); URIC ACID 5.8 MG/DL (3.5-7.2)
[2020-07-19 10:48] LABS: FOLATE 6.6 NG/ML (>5.4); VITAMIN B12 LEVEL 580 PG/ML (247-911)
== END ==
LOC: M WUC 08:31
PROVIDERS: ATTEND Family Medicine
DX: Z01.818 Encounter for other preprocedural examination (principal); M10.9 Gout, unspecified; I10 Essential (primary) hypertension; E78.5 Hyperlipidemia, unspecified; E66.01 Morbid (severe) obesity due to excess calories

== ENCOUNTER → 2021-02-18 | Outpatient (CLI) | payer BC ==
[2021-02-18 16:28] LABS: BLOOD UREA NITROGEN 11 MG/DL (7-18); CARBON DIOXIDE LEVEL 27 MEQ/L (21-32); CHLORIDE LEVEL 111 MEQ/L (98-107); CREATININE FOR GFR 0.93 MG/DL (0.70-1.30); GLOMERULAR FILTRATION RATE > 60.0 (>60); GLUCOSE, FASTING 115 MG/DL (70-100); POTASSIUM SERUM 3.8 MEQ/L (3.5-5.1); SODIUM LEVEL 143 MEQ/L (136-145)
[2021-02-18 16:29] LABS: ALBUMIN 3.8 GM/DL (3.2-5.2); PHOSPHORUS LEVEL 2.6 MG/DL (2.5-4.9); URIC ACID 7.1 MG/DL (3.5-7.2)
== END ==
LOC: M WUC 13:50
PROVIDERS: ATTEND Physician Assistant
DX: M10.041 Idiopathic gout, right hand (principal)

== ENCOUNTER → 2021-04-10 | Outpatient (CLI) | payer BC ==
--- NOTE | 2021-04-10 10:58 | REP ---
INDICATION: RT KNEE PAIN. COMPARISON: None. TECHNIQUE: AP, lateral, bilateral oblique and sunrise views of the right knee FINDINGS: Lateral and sunrise views best demonstrate bulky osteophytosis and fraying involving the patella as well as somewhat irregular calcifications at the insertion of the patellar tendon on the tibial tuberosity with overlying soft tissue swelling. 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 More mild degenerative changes of the tibiofemoral joint include mild chondrocalcinosis, increased sclerosis along the tibial plateau, and marginal spurring. No acute fracture or dislocation. No definite effusion. IMPRESSION: Degenerative changes as noted above. <Electronically signed by Maldonado Figueroa > 04/10/21 0261
== END ==
LOC: M SOG 10:29
PROVIDERS: ATTEND Orthopaedic Surgery Sports Medicine
DX: M11.261 Other chondrocalcinosis, right knee (principal); M17.11 Unilateral primary osteoarthritis, right knee

== ENCOUNTER 2022-11-15 15:35 | Emergency (ER) | payer BC ==
[~2022-11-15] VITALS: Ht 177.8 cm; Wt 182.9 kg
[2022-11-15] MEDS ORDERED: METO1TAB32 (16:03)
[2022-11-15] MEDS ORDERED: ALLO100T (16:03)
[2022-11-15 17:30] LABS: BASO # 0.1 10^3/uL (0.0-0.2); BASO % 0.7 % (0.0-1.0); EOS # 0.1 10^3/uL (0.0-0.5); EOS % 1.6 % (0.0-3.0); HEMATOCRIT 47.6 % (42.0-52.0); HEMOGLOBIN 15.6 g/dl (13.5-17.5); LYMPH # 1.5 10^3/uL (1.5-5.0); LYMPH % 18.5 % (24.0-44.0); MEAN CORPUSCULAR HEMOGLOBIN 28.7 pg (27.0-33.0); MEAN CORPUSCULAR HGB CONC 32.8 g/dl (32.0-36.5); MEAN CORPUSCULAR VOLUME 87.7 fl (80.0-96.0); MONO # 0.9 10^3/uL (0.0-0.8); MONO % 10.2 % (2.0-8.0); NEUTROPHILS # 5.7 10^3/uL (1.5-8.5); NEUTROPHILS % 68.5 % (36.0-66.0); PLATELET COUNT, AUTOMATED 213 10^3/uL (150-450); RED BLOOD COUNT 5.43 10^6/uL (4.30-6.10); WHITE BLOOD COUNT 8.3 10^3/uL (4.0-10.0)
[2022-11-15 17:51] LABS: BLOOD UREA NITROGEN 15 MG/DL (9-23); CALCIUM LEVEL 9.2 MG/DL (8.5-10.1); CARBON DIOXIDE LEVEL 27 MMOL/L (20-31); CHLORIDE LEVEL 109 MMOL/L (98-107); CREATININE FOR GFR 1.04 MG/DL (0.70-1.30); GLOMERULAR FILTRATION RATE > 60.0 (>56); GLUCOSE, FASTING 96 MG/DL (60-100); POTASSIUM SERUM 4.3 MMOL/L (3.5-5.1); SODIUM LEVEL 148 MMOL/L (136-145)
[2022-11-15] MEDS ORDERED: ceFAZolin SOD 2 GM in IV 1 EA IV ONE (18:20)
[2022-11-15] MEDS ORDERED: CEPH500C PO (19:18)
[2022-11-15 19:21] VITALS: BP 158/86; TEMP 98.2; O2SAT 97
== END 2022-11-15 19:25 | disposition home or self-care (01) ==
LOC: M ED 15:35
DX: L03.115 Cellulitis of right lower limb (principal); E78.5 Hyperlipidemia, unspecified; G47.33 Obstructive sleep apnea (adult) (pediatric); I10 Essential (primary) hypertension; I73.9 Peripheral vascular disease, unspecified; M10.9 Gout, unspecified; Z79.899 Other long term (current) drug therapy; Z79.82 Long term (current) use of aspirin
CPT/HCPCS: 80048; 85025; 86140; 87040; 93971; 96365; 99283; J0690